=== PATIENT | female | born 1975 | race Caucasian/White ===

== ENCOUNTER 2021-07-12 08:48 | Inpatient (IN) | payer BC, OTHER ==
[2021-07-12] VITALS (30 sets, daily range): BP systolic 87–121; BP diastolic 57–83
[~2021-07-12] VITALS: Ht 160 cm; Wt 73.0 kg
[~2021-07-12 08:48] MED LIST: BACTRIM DS TAB1 EACH PO; CLONAZEPAM 0.50.5 M1 PO; KEFLEX500 M1 PO; ROSUVASTATIN CA10 MG PO; XANAX 0.5 MG0.5 M1 PO
--- NOTE | 2021-07-12 19:05 | NUR ---
PT IS AN ADM FROM [facility] FOR CT EVALUATION. THE ATRIUM IS REPLACED AND PUT ON NEG 20 PRESSURE. THE AIR LEAK IMPROVES AFTER SUCH INTERVENTION. THE PT. IS STABLE BUT ON A NRB 15L. HER IS AT THE BEDSIDE AND INFORMED OF THE POC FOR THIS PT. RN TO RN REPORT COMPLETE PRIOR TO ADM.
[2021-07-12 19:09] LABS: HEMATOCRIT 39.6 % (37.0-47.0); HEMOGLOBIN 13.2 gm/dL (12.0-15.0); MCH 29.4 pg (26.0-34.0); MCHC 33.3 g/dL (28.0-37.0); MCV 88.5 fL (80.0-100.0); RBC 4.48 mil/uL (4.20-5.00); RDW 14.9 % (10.5-14.5); WBC 18.5 thou/uL (4.0-11.0)
[2021-07-12 19:20] LABS: APTT 25.5 Seconds (24.5-32.8); INR 1.02; PROTIME 11.1 Seconds (10.5-12.1)
[2021-07-12 20:17] LABS: BE(vivo) 5.6 mmol/L (-2 to +3); HCO3 28.5 mmol/L (22.0-26.0); PCO2 35.5 mmHg (35.0-45.0); PO2 73.9 mmHg (80.0-100.0); pH 7.522 (7.360-7.450); sO2 96.2 % (92.0-98.0)
[2021-07-13] VITALS (15 sets, daily range): BP systolic 85–121; BP diastolic 54–72
[2021-07-13 02:18] LABS: ABSOLUTE NEUTROPHILS 13.9 thou/uL (1.4-8.2); BASOPHILS 0.2 % (0.0-2.0); EOSINOPHILS 0.1 % (0.0-3.0); HEMATOCRIT 36.1 % (37.0-47.0); HEMOGLOBIN 12.1 gm/dL (12.0-15.0); LYMPHOCYTES 4.7 % (24.0-44.0); MCH 29.3 pg (26.0-34.0); MCHC 33.5 g/dL (28.0-37.0); MCV 87.5 fL (80.0-100.0); MONOCYTES 1.5 % (1.0-8.0); PLATELET COUNT 167 thou/uL (150-400); POLYS 93.5 % (36.0-66.0); RBC 4.12 mil/uL (4.20-5.00); RDW 14.5 % (10.5-14.5); WBC 14.8 thou/uL (4.0-11.0)
[2021-07-13 02:24] LABS: ALBUMIN 2.9 g/dL (3.4-5.0); CALCIUM 8.8 mg/dL (8.5-10.1); CREATININE 0.7 mg/dL (0.6-1.0); MAGNESIUM 2.2 mg/dL (1.8-2.4); POTASSIUM 3.3 mmol/L (3.5-5.1); TOTAL BILIRUBIN 0.6 mg/dL (0.2-1.0); TOTAL PROTEIN 5.9 g/dL (6.4-8.2)
--- NOTE | 2021-07-13 10:32 | NUR ---
0700HRS - HEPARIN 13 UNITS/KG/HR AT SHIFT CHANGE 1030HRS - APTT @ 0920HRS 94.2 FROM PICC. REDRAW PERIPHERAL @ 1003HRS 99.7. HEPARIN GTT STOPPED, WILL RESTART AT 1130HRS AND TITRATE ORDERED.
--- NOTE | 2021-07-13 12:00 | HC ---
[facility] [place] [address] CONSULTATION Name: ISAK VO Room #: 239-P ADM IN M.R.#: [id number] Admission: 07/12/21 Attend Phys: Pablo Cherry MD Discharge: Date of : 73 Report #: [id number] THIS REPORT FOR: cc: Sybil Brown Ghaison F. DO Barry, Joseph W. MD ~ DATE OF SERVICE: 07/12/2021 INFECTIOUS DISEASE CONSULTATION ATTENDING PHYSICIAN: Dr. Chopra. REASON FOR EVALUATION: Coagulase-negative staph, line related septicemia. HISTORY OF PRESENT SUBJECTIVE: Chart reviewed. The patient examined. This is a 46-year-old who had extensive medical history of recent 4-6 weeks, diagnosed with COVID, was confirmed to have pneumonitis with respiratory failure that was quite severe. She has been hospitalized for the duration of the time of this point. Diagnosed with pulmonary emboli, also developed a pneumothorax on the left, so undergone a chest tube placement. She was transferred to this facility due to malfunctioning of the chest tube, requirement of Thoracic Surgery. Roughly a week ago, apparently was diagnosed with a central line related Staph epidermidis infection as isolated from the tip, has been on vancomycin. Clinically, she is not experiencing any fevers. She is maintained on still high-flow supplemental oxygen, nonrebreather with face mask at 15 liters per minute, FiO2 of 100%. Denies significant abdominal related complaints. She has had a recent bowel movement. ALLERGIES: LISTED TO CODEINE AND OXYCODONE. CURRENT MEDICATIONS: Include pantoprazole, methylprednisolone, clonazepam, vancomycin, midodrine, dexmedetomidine, p.r.n. analgesics. PAST MEDICAL HISTORY: Includes hyperlipidemia, anxiety, recent history of COVID-19 infection, complicated by severe pneumonitis, respiratory failure with pulmonary emboli and pneumothorax, previous hysterectomy, cholecystectomy. SOCIAL HISTORY: Nonsmoker. No illicit drug use. No ethanol. FAMILY HISTORY: Noncontributory. REVIEW OF SYSTEMS: Otherwise, unremarkable. PHYSICAL EXAMINATION: GENERAL: She is alert, cooperative. She does have some hearing deficits, appears somewhat chronically ill and undernourished. She is generally lucid. [facility] [address] [place] [address] CONSULTATION Name: ISAK VO Room #: 239-P [facility]#: [id number] Admission: 07/12/21 Attend Phys: Pablo Cherry MD Discharge: Date of : 73 Report #: [id number] VITAL SIGNS: Temperature afebrile, pulse 65, respirations 29, blood pressure 101/83, saturation 90% on a nonrebreather. HEENT: Normocephalic. Extraocular muscles intact. Face mask in place. NECK: Supple. LUNGS: Diffuse scattered coarse breath sounds. HEART: Regular, do not appreciate a murmur. ABDOMEN: Slightly distended, soft, nontender. EXTREMITIES: No cyanosis. GENITOURINARY AND RECTAL: Deferred. DIAGNOSTIC DATA: Chest x-ray from today showed patchy bilateral pulmonary infiltrates, scattered right sided PICC line which has been recently changed, left thoracostomy, tiny left pneumothorax. LABORATORY DATA: Labs pending. ASSESSMENT AND PLAN: 1. Staph epidermidis, line related infection. 2. COVID-19 infection, complicated by pneumonitis, chronic respiratory failure with pulmonary emboli and left-sided pneumothorax requiring chest tube. 3. Hyperlipidemia. We will continue current therapy with vancomycin; we would plan at least additional week at this point and see how she does clinically over the course of next several days. She remains tenuous. Continue to monitor expectantly at risk for additional complications. <ELECTRONICALLY SIGNED> By: Hamlet Gonsales MD 07/13/21 1200 1547 0029 Hamlet Gonsales MD /nt
--- NOTE | 2021-07-13 12:49 | NUR ---
RD consult received. pt a transfer from [facility] with hx treatment for COVID (no longer isolation protocol), ARDS, pneumothorax with chest tube and air leak. On optiflow. Records from show pt has been eating well, 100% of meals but likely some wt loss up to 25 lb over past 3 months. Highly anxious today, psych consulted. Will follow up at later date for interview with pt. No diet order yet. Low nutrition risk at this time.
--- NOTE | 2021-07-13 15:06 | NUR ---
Chart review. DX h/o COVID. Transferred from [facility]. Out of covid isolation. Has chest tube, is on optflow oxygen. Not had the covid vaccine. Prior to hospital, independent, CPAP at bedtime, manage own medication. drives. Lives with spouse chirag, in raised ranch home with 12-14 stairs, no hand rail. Able to complete adls [employer] independent. Kids are grown. Support from her spouse if needed. No hh or rehab in the past. Will cont following as needed for dc needs. There will be [place] paper work for her spouse so if she needs a little assist with get home, he will be there and there is another insurance form he needs completed. Chirag will bring in paper work for to complete.
--- NOTE | 2021-07-13 16:28 | NUR ---
1445HRS - PT UP IN RECLINER WITH PT, OT, & RN ASSIST
--- NOTE | 2021-07-13 17:23 | NUR ---
1723HRS - PT PLACED BACK INTO BED WITH RN ASSIST
--- NOTE | 2021-07-13 18:44 | NUR ---
0900HRS - PT REFUSE FLU SHOT
[2021-07-14] VITALS (36 sets, daily range): BP systolic 78–156; BP diastolic 49–125
--- NOTE | 2021-07-14 02:47 | NUR ---
Suction cannister connected to purewick remains empty despite suction being on and all connections secure. Pt denies feeling need to void or feeling wet. Has been sleeping soundly since 2199, so fluid intake low.
[2021-07-14 06:28] LABS: HEMATOCRIT 33.2 % (37.0-47.0); HEMOGLOBIN 11.1 gm/dL (12.0-15.0); MCH 29.7 pg (26.0-34.0); MCHC 33.5 g/dL (28.0-37.0); MCV 88.6 fL (80.0-100.0); RBC 3.75 mil/uL (4.20-5.00); RDW 14.7 % (10.5-14.5)
[2021-07-14 06:41] LABS: CALCIUM 8.6 mg/dL (8.5-10.1); CREATININE 0.7 mg/dL (0.6-1.0); MAGNESIUM 2.4 mg/dL (1.8-2.4)
--- NOTE | 2021-07-14 11:18 | NUR ---
0930HRS - PT SHOWING SIGNS OF ANXIETY, MULTIPLE QUESTIONING, HR 130S, O2 70S, RAPID BREATHIHNG. PT AT BEDSIDE AND ASSISTED PT TO RECLINER. PRECEDEX INCREASED.
--- NOTE | 2021-07-14 13:40 | NUR ---
1000HRS - PT EASILY FRUSTRATED AND ANXIOUS. DOEN'T MAKE MUCH EFFORT TO FEED SELF. REQUESTED STAFF TO FEED HER. CREATES SMALL JOBS FOR STAFF SUCH ARRANGE HER TABLE IN FRONT OF HER WHILE IN THE SEATED POSITION. EDUCATED PT THAT SHE NEEDS TO BE ABLE TO DO TASKS BY HERSELF TO IMPROVE MUSCLE STRENGTH AND A SENSE OF INDEPENDANCE.
--- NOTE | 2021-07-14 14:45 | NUR ---
Discussed during los and unit rounds. Dr Ardon consult. anxiety. Desaturation with activity or yelling out. Opti flow. Up to recliner chair today with therapy. Out of isolation. No weekend dc, will cont. following as needed for dc needs.
--- NOTE | 2021-07-14 16:35 | NUR ---
0400HRS - BLADDER SCAN >400. NOTIFIED DR. LEMUS 0430HRS - INSERT LEONG CATH USING STERILE TECHNIQUE. 10CC NS INTO BALLOON. PT REPORTED NO DISCOMFORT AT THIS TIME. 400ML EMPTY INTO LEONG CATH BAG
--- NOTE | 2021-07-14 16:39 | NUR ---
1030HR - PT'S FRIEND VISITED AND AT BEDSIDE.
--- NOTE | 2021-07-14 18:19 | NUR ---
1600HRS- PT PLACED BACK IN BED WITH X2 ASSIST AFTER A TOTAL OF APPROX 6 HOURS.
[2021-07-15] VITALS (22 sets, daily range): BP systolic 110–150; BP diastolic 59–88
--- NOTE | 2021-07-15 05:00 | NUR ---
PT REFUSED AM BATH THIS MORNING STATING SHE WANTS TO WAIT UNTIL LATER TODAY WHEN SHE GETS UP TO THE CHAIR.
[2021-07-15 05:09] LABS: HEMATOCRIT 33.4 % (37.0-47.0); HEMOGLOBIN 11.1 gm/dL (12.0-15.0); MCH 29.8 pg (26.0-34.0); MCHC 33.2 g/dL (28.0-37.0); MCV 89.7 fL (80.0-100.0); RBC 3.73 mil/uL (4.20-5.00); RDW 14.9 % (10.5-14.5); WBC 16.5 thou/uL (4.0-11.0)
--- NOTE | 2021-07-15 09:51 | NUR ---
0945RHS - PT OUT OF BED INTO RECLINER WITH X1 ASSIST RN. PT DESAT TO 75%, HR 120S, RESP 40S. PT REPORTING FEELING ANXIOUS. PT APPEARED SAD AND WHINED, WHINED, "DON'T LEAVE ME! DON'T LEAVE THE ROOM!"
--- NOTE | 2021-07-15 11:49 | NUR ---
1015HRS - PRECEDEX OFF, ORDERS TO TRANSFER, ER ADMISSION CALLED TO CONFIRM ORDERS FOR TRANSFER, MACHINE CAGE MAKER NURSE RECIEVED ROOM NUMBER 363 AND REPORTED TO THIS PRACTICE ASSISTANT. REPORTED GIVEN TO 363 RN.
--- NOTE | 2021-07-15 14:45 | NUR ---
PT ARRIVED TO ROOM 363 VIA CHAIR AT 1100. PT HAS LEFT CHEST TUBE. DR. RIVERA ORDERED CHEST TUBE TO BE HOOKED UP TO SUCTION AT -20CM. THERE IS AN AIRLEAK. PT IS ON OPTIFLOW 50L AT 60%. PT IS TACHYPNIC AND ANXIOUS AT THIS TIME. PT IS SINUS TACHYCARDIA ON HE MONITOR. PT CURRENTLY HAS HEPARIN GTT INFUSING. LEONG CATHEER IN PLACE FOR RETENTION. RIGHT UPPER ARM DL PICC LINE HAS GOOD BLOOD RETURN. COCCYX RED. WILL CONTINUE TO MONITOR.
[2021-07-16 00:03] VITALS: BP 162/88
--- NOTE | 2021-07-16 01:58 | NUR ---
PT ALERT AND ORIENTED X4. PT IS VERY ANXIOUS. STAYED WITH PT THROUGH HER HIGH ANXIETY. NOTIFIED COFFEE PLANTATION WORKER OF C/O ANXIETY. HALDOL 5MG IV ORDERED. PT ONLY WANTED TO TRY 2.5 MG IV. RR 40. PT C/O BEING HOT THEN COLD A FEW MINUTES LATER FREQUENTLY. SATS DECREASED TO 79 BRIEFLY THEN BACK UP TO 90S ON 40 LF AND 68 FIO2. RT NOTIFIED. CHEST TUBE HAS AN AIR LEAK NOTED . IS AWARE ACCORDING TO DAY SHIFT NS. NOTIFIED COFFEE PLANTATION WORKER ALSO. HR FLUCTUATING FROM 90S-105. BREATH SOUNDS ARE DIMINSHED WITH FEW RHONCHI NOTED. WILL CONTINUE TO MONITOR PT FREQUENTLY. ZGARD APPLIED TO REDDENED BOTTOM.
[2021-07-16 05:19] VITALS: BP 136/83
[2021-07-16 05:52] LABS: BE(vivo) 3.2 mmol/L (-2 to +3); HCO3 25.9 mmol/L (22.0-26.0); PCO2 33.3 mmHg (35.0-45.0); PO2 59.2 mmHg (80.0-100.0); pH 7.509 (7.360-7.450); sO2 93.1 % (92.0-98.0)
[2021-07-16 05:54] LABS: HEMOGLOBIN 11.1 gm/dL (12.0-15.0); RBC 3.74 mil/uL (4.20-5.00)
[2021-07-16 05:56] LABS: HEMATOCRIT 33.4 % (37.0-47.0); MCH 29.7 pg (26.0-34.0); MCHC 33.2 g/dL (28.0-37.0); MCV 89.4 fL (80.0-100.0); PLATELET COUNT 178 thou/uL (150-400); RDW 14.6 % (10.5-14.5); WBC 19.5 thou/uL (4.0-11.0)
[2021-07-16 07:16] LABS: ABSOLUTE NEUTROPHILS 17.4 thou/uL (1.4-8.2); NUCLEATED RBCS 4 /100WBC
[2021-07-16 07:18] LABS: ANISOCYTOSIS 1+; POLYCHROMASIA OCCASIONAL
[2021-07-16 07:57] VITALS: BP 138/87
--- NOTE | 2021-07-16 07:59 | NUR ---
PT ALERT AMD ORIENTED X4 THIS AM. SHE IS MUCH LESS ANXIOUS THIS MORNING AFTER SHE FELL ASLEEP FOR ABOUT 4 HRS. SHE APOLOGIZED REGARDING HER PANICK ATTACH. MUCH ENCOURAGEMENT PROVIDED FOR PT. HEPAIN GTT INFUSING. VANCOMYCIN TROUGH 27. NOTIFIED PHARMACIST. HE STATED TO STOP VANC. DOSE AND WE WILL HOLD FOR 24 HRS. PHARMACIST STATED HE WOULD NOTIFY DR GAN HIMSELF. THRESHER BROOMCORN ALSO NOTIFIED OF VANC LEVEL AND THAT I HELD MIDODRINE THIS AM UNTIL CLARIFIED PER WHETHER TO CONTINUE HERE ON FLOOR OR NOT. (PT NO LOMGER ON SEDATION). UO 100 THIS AM. BLADDER SCANNED PT 425 ON SCANNER AND 450 DRAINED FROM LEONG AFTER REPOSITIONING TUBING AND RELEASED FROM LEONG ANCHOR. SATS WNL THIS AM.
[2021-07-16 11:31] VITALS: BP 149/99
[2021-07-16 15:42] VITALS: BP 146/92
--- NOTE | 2021-07-16 18:48 | NUR ---
PT ALERT AND ORIENTED X 4. PT ON 42L OPTIFLOW WITH 63% FI02. PT DESATS WITH MOVEMENT AND BECOMES ANXIOUS WHEN SHE HEARS ALARM GO OFF. PT DENIES PAIN. PT HAD BM TODAY. CHEST TUBE DRAINED 10ML DURING THIS SHIFT. PT DENIES NEEDS AT THIS TIME. FALL PRECAUTIONS IN PLACE. WILL CONTINUE TO MONITOR.
[2021-07-16 19:07] VITALS: BP 149/93
[2021-07-17 03:16] VITALS: BP 156/80
--- NOTE | 2021-07-17 04:23 | NUR ---
PT 24 HOUR APTT WAS 45.4. BOLUS 2220 UNITS AND INCREASED DRIP BY 2U/KG/HR. APTT REDRAW SCHEDULED FOR 05.
--- NOTE | 2021-07-17 05:30 | NUR ---
PT ALERT AND ORIENTED X 4. PT ON 40L OPTIFLOW AND 67% FIO2. PT WAS ABLE TO SLEEP FOR 4 HRS. PT HAD A BM DURING SHIFT AND REFUSED STOOL SOFTENER. PT C/O OF PAIN ON GENERALIZED RIGHT SIDE. NURSE ADDRESSED AND ADMINISTERED PAIN MEDICATIONS AT 0500. CHEST TUBE DRAINED 2ML DURING THIS SHIFT. FALL PRECAUTIONS IN PLACE. WILL CONTINUE TO MONITOR.
[2021-07-17 07:11] LABS: ALBUMIN 2.3 g/dL (3.4-5.0); CREATININE 0.5 mg/dL (0.6-1.0); PHOSPHORUS 2.7 mg/dL (2.5-4.9); POTASSIUM 3.1 mmol/L (3.5-5.1)
[2021-07-17 07:14] LABS: CALCIUM 6.6 mg/dL (8.5-10.1)
[2021-07-17 07:58] VITALS: BP 137/888
[2021-07-17 11:28] VITALS: BP 148/95
--- NOTE | 2021-07-17 14:34 | NUR ---
BRIAN reviewed chart and spoke with nursing and attending physician. Pt was transferred to from ICU. Pt has chest tube in place and is requiring optiflow. Pt is on IV abx and IV steroids. PT/OT evals have been ordered. BRIAN met with pt and her dtr at bedside. Introduced role of SW and discussed discharge planning. Pt states she would like to go to [facility] for rehab services. BRIAN explained inpt acute rehab admission criteria and the need to check pt's insurance coverage. BRIAN also discussed LTAC option if pt's O2 needs remain high and chest tube remains in place. Pt states she does not want to consider LTAC at this time and is focused on going to [facility] if she is able to qualify. BRIAN discussed with [facility] vision rehabilitation therapist who will put in a [facility] consult. BRIAN updated pt's nurse and attending physician. BRIAN is following to assist as needed with discharge planning.
[2021-07-17 16:28] VITALS: BP 132/88
[2021-07-17 20:54] VITALS: BP 135/95
[2021-07-18 03:16] VITALS: BP 125/80
[2021-07-18 06:17] LABS: HEMATOCRIT 33.1 % (37.0-47.0); HEMOGLOBIN 11.4 gm/dL (12.0-15.0); MCH 30.6 pg (26.0-34.0); MCHC 34.3 g/dL (28.0-37.0); MCV 89.3 fL (80.0-100.0); RBC 3.71 mil/uL (4.20-5.00); RDW 14.8 % (10.5-14.5); WBC 18.9 thou/uL (4.0-11.0)
--- NOTE | 2021-07-18 06:34 | NUR ---
PT ALERT AND ORIENTED X 4. PT ON 40L OPTIFLOW 60% FIO2. PT HAD BM DURING SHIFT AND REFUSED STOOL SOFTENER. PT C/O OF PAIN ON BACK AND DISCOMFORT IN POSTIONING. ATTEMPTED TO REPOSITION BUT IT WAS INADEQUATE. NURSE ADDRESSED PAIN AND ADMINISTERED PAIN MEDICATION. CHEST TUBE DRAINED 10ML DURING THIS SHIFT. FALL PRECAUTIONS IN PLACE. WILL CONTINUE TO MONITOR.
[2021-07-18 07:38] VITALS: BP 147/89
[2021-07-18 11:23] VITALS: BP 152/93
--- NOTE | 2021-07-18 14:26 | NUR ---
BRIAN reviewed chart and spoke with nursing and attending physician. Pt remains on optiflow and has chest tube in place. Pt is on IV abx and IV steroids. BRIAN discussed case with [facility] rehab manager. At this time, pt does not meet admission criteria for [facility]. Recommendation made for LTAC placement for complex medical needs. [facility] rehab LEAD CLINICAL RESEARCH COORDINATOR to discuss with pt today. BRIAN is following to assist as needed with discharge planning.
[2021-07-18 16:21] VITALS: BP 170/105
[2021-07-18 19:22] VITALS: BP 151/83
--- NOTE | 2021-07-18 19:34 | NUR ---
ASSUMED PATIENT CARE AT 0700. A/O X4. ANXIOUS. DESAT WITH ACTIVITY. NOT TOWARDS POC GOALS.
--- NOTE | 2021-07-18 21:06 | NUR ---
YOEL PARIS CAME BACK AT 11. SPOKE TO [facility] AND THEY WILL ADJUST TO HIGHER DOSE. ASSUMED CARE FOR PT AT 1845. PT NEEDS TO ATTEMPT MORE CARES FOR HERSELF. PT REFUSING TO USE BEDPAN AT 2100 DUE TO "HER ANXIETY" WHILE HAVING A BM IN THE BED.
[2021-07-19 03:56] VITALS: BP 142/85
[2021-07-19 07:51] VITALS: BP 141/95
[2021-07-19 16:21] VITALS: BP 156/106
--- NOTE | 2021-07-19 18:43 | NUR ---
HEPARIN DC'D. PT HAS ORDERS FROM DR GAMBOA TO OOB AND UP TO CHAIR. PT DOES NOT TOLERATE OOB AND UP TO CHAIR. PT HAS INCREASED ANXIETY AND PANIC ATTACK WHEN SITTING ON SIDE OF BED TO DANGLE. PT IS ABLE TO SIT ON SIDE OF BED AND DANGLE APPROX. 2-3 MINUTES. PT DOES DESAT WITH ACTIVITY, BUT IS ABLE TO RECOVER WITHIN MINUTES AFTER POSITION CHANGE. PT HAD MULTIPLE SOFT BROWN BM'S THIS SHIFT. TOLERATES BED REYES. PT STATES SHE HAS GOAL OF LEARNING THERAPEUTIC BREATHING TECHNIQUES TO HELP WITH ANXIETY, IS COMPLIANT WITH ANXIETY MEDICATION. THIS RN PROVIDED EXAMPLE OF BREATHING TECHNIQUES.
[2021-07-19 19:07] VITALS: BP 151/93
--- NOTE | 2021-07-19 22:52 | NUR ---
PT RESTING IN BED, VISITED WITH . OPTI SARAH AND CONTINUOUS PULSE OX INTACT. PT TURNING SELF IN BED. LUNGS CRACKLES, PALE SKIN TONE. CHEST TUBE INTACT, AIR LEAK REMAINS. LEONG TO DD. BLE EDEMA. PT CALLS FOR ASSIST. PT INTERMITTENTLY ASKS IF O2 SAT IS GOOD. PT READING BOOK, TALKING ABOUT DECORATING FOR HALLOWEEN.
[2021-07-20 03:55] VITALS: BP 147/88
--- NOTE | 2021-07-20 05:54 | NUR ---
PT REFUSING MIDODRINE, SINCE BP REMAINS WNL.
[2021-07-20 07:33] VITALS: BP 135/90
--- NOTE | 2021-07-20 11:06 | NUR ---
SW reviewed chart and spoke with nursing and attending physician. Pt has chest tube in place and remains on optiflow. Pt is on IV abx and IV steroids. No surgical interventions planned at this time. BRIAN met with pt at bedside. [facility] has declined pt for admission until she is more medically stable: chest tube removed and not requiring as much O2. SW discussed with pt and provided list of area LTAC facilities. SW explained the level of care provided at the LTAC facilities. Pt states she is not going to an LTAC and will only consider [facility]. SW explained that [facility] cannot accept her and that [facility] would be an option after an LTAC stay or when she is medically stable. SW left LTAC list in her room for review. BRIAN is following to assist as needed with discharge planning.
[2021-07-20 11:19] VITALS: BP 135/87
--- NOTE | 2021-07-20 11:41 | NUR ---
Nutrition follow up: Pt noted with 8 lb wt gain this week. Also noted on steroids, which can cause weight gain. Intakes at meals avg >60% with ensure daily. Cotninues with chest tube in place for pneumothorax, no surgical interventions planned. Goal is d/c to [facility], however, pt is no medically stable and will likely need LTAC before rehab. Continue current interventions. Low nutrition risk.
[2021-07-20 15:34] VITALS: BP 139/92
[2021-07-20 19:50] VITALS: BP 154/102
[2021-07-20 23:20] VITALS: BP 130/100
[2021-07-21 04:10] VITALS: BP 125/98
[2021-07-21 05:56] LABS: HEMATOCRIT 37.3 % (37.0-47.0); HEMOGLOBIN 12.7 gm/dL (12.0-15.0); MCH 30.6 pg (26.0-34.0); MCV 90.1 fL (80.0-100.0); PLATELET COUNT 169 thou/uL (150-400); RBC 4.14 mil/uL (4.20-5.00); RDW 15.2 % (10.5-14.5); WBC 22.5 thou/uL (4.0-11.0)
[2021-07-21 06:14] LABS: ALBUMIN 3.3 g/dL (3.4-5.0); CALCIUM 9.7 mg/dL (8.5-10.1); CREATININE 0.6 mg/dL (0.6-1.0); MAGNESIUM 2.3 mg/dL (1.8-2.4); PHOSPHORUS 4.2 mg/dL (2.5-4.9); POTASSIUM 4.6 mmol/L (3.5-5.1); TOTAL BILIRUBIN 0.5 mg/dL (0.2-1.0); TOTAL PROTEIN 6.3 g/dL (6.4-8.2)
[2021-07-21 06:54] LABS: NUCLEATED RBCS 1 /100WBC
[2021-07-21 06:55] LABS: ANISOCYTOSIS 1+; LARGE PLATELETS FEW; PLATELET ESTIMATE NORMAL; POIKILOCYTOSIS 1+; POLYCHROMASIA 1+
--- NOTE | 2021-07-21 07:28 | NUR ---
PT MAKING POOR PROGRESS TOWARDS GOAL. CHEST TUBE, LEFT SIDE WITH BUBBLING IN WATER CHAMBER. THIS PER DAY RN WAS NOT A NEW FINDING. PT ON OPTIFLO AT 40L/69-70% FIO2 OVERNIGHT. AT REST PT O2 SAT 90-92%. WHILE ASLEEP SAT NOTED TO BE 97-99%. PT O2 SAT FALLS TO 80% WITH MINIMAL EXERTION SUCH ROLLING OVER IN BED. PT NOTED TO HAVE ACCESSORY MUSCLE USE AND MODERATE ABDOMINAL MOVEMENT WITH BREATHING. THIS IS ALSO PRESENT WHEN ASLEEP. UPON INITIAL ASSESSMENT PT REFUSED TO WEAR BIPAP. PT INFORMED ABOUT THE WAY IN WHICH SHE IS BREATHING AND HOW BIPAP MAY HELP REDUCE SOME OF THE WOB ESPECIALLY WHEN ASLEEP. PT RECEPTIVE TO INFORMATION BUT STILL DID NOT AGREE TO WEAR BIPAP.
[2021-07-21 07:35] VITALS: BP 154/104
[2021-07-21 11:13] VITALS: BP 144/104
--- NOTE | 2021-07-21 14:43 | NUR ---
BRIAN reviewed chart and spoke with nursing and attending physician. Pt has chest tube in place and is requiring optiflow. Pt is on IV steroids. Attending physician spoke with pt about going to an LTAC for continued complex medical care. BRIAN sent face sheet to the three [facility] LTACs to determine which LTACs are in-network. BRIAN spoke with Vic at [facility] said they are in-network, but do not anticipating having a bed for several weeks. [facility] is limited as to how many pts they can take with pt's insurance. BRIAN spoke with Lainey in intake at [facility] who states they are in-network. BRIAN spoke with Estefani at [facility], who states that pt's insurance plan does not have LTAC benefits. BRIAN notified TAMARA RN and Director of Case Management. TAMARA RN checked pt's insurance. Confirms pt does not have LTAC benefits. Pt has inpt acute rehab, SNF and HH coverage. BRIAN discussed with [facility] cardiac rehab nurse. No weekend discharge anticipated. BRIAN is following to assist as needed with discharge planning.
[2021-07-21 15:47] VITALS: BP 135/90
[2021-07-21 19:45] VITALS: BP 125/90
--- NOTE | 2021-07-22 04:43 | NUR ---
PT MAKING SLOW PROGRESS TOWARDS GOALS. ON OPTIFLO AT 35L/58% OVERNIGHT. CHEST TUBE WITH BUBBLING IN WATER CHAMBER, SUCTION SET TO -30. WOB NOTABLY LESS THAN LAST NIGHT WITH ABSENCE OF ACCESSORY MUSCLE USE AND RESP RATES IN LOW 20S.
[2021-07-22 05:55] VITALS: BP 135/93
[2021-07-22 07:53] VITALS: BP 134/84
[2021-07-22 11:13] VITALS: BP 129/82
--- NOTE | 2021-07-22 15:00 | NUR ---
PT DANGLED ON SIDE OF BED...REQUESTED TO STAND AND PIVOT TO CHAIR BUT SOON SHE DANGLED SHE DESATED TO 75%...SHE WAS UNABLE TO TOLERATE DANGLING MORE THAN 5 MIN AND OPTIFLOW WAS INCREASED TO MAINTAIN HER SATS...
[2021-07-22 15:07] VITALS: BP 143/100
[2021-07-22 19:31] VITALS: BP 147/96
[2021-07-23 04:58] VITALS: BP 153/99
[2021-07-23 05:55] VITALS: BP 153/104
--- NOTE | 2021-07-23 06:07 | NUR ---
SPOKE WITH JEFFERSON, PT AWOKE WITH STERNAL "STABBING" PAIN JUST ABOVE THE EPIGASTRIC LEVEL W/O RADIATION NOR ANY OTHER ASSOCIATED SX. PAIN LEVEL DID NOT CHANGE WITH SWALLOW OF WATER, DEEP BREATH OR PALPATION. LUNGS CLEAR, WITH CRACKLES IN LLL. NO OBSERVABLE CHANGE IN CHEST TUBE FUNCTION. ORDERS FOR EKG, TROP AND TYLENOL FOR DISCOMFORT. PT STATING "I THINK IT MIGHT BE A MUSCLE STRAIN." AWAIT RESULTS.
[2021-07-23 07:49] VITALS: BP 152/95
[2021-07-23 08:51] LABS: HEMATOCRIT 36.9 % (37.0-47.0); HEMOGLOBIN 12.2 gm/dL (12.0-15.0); PLATELET COUNT 141 thou/uL (150-400); RBC 4.06 mil/uL (4.20-5.00); RDW 15.9 % (10.5-14.5); WBC 16.5 thou/uL (4.0-11.0)
[2021-07-23 09:03] LABS: ALBUMIN 3.4 g/dL (3.4-5.0); CALCIUM 9.8 mg/dL (8.5-10.1); CREATININE 0.7 mg/dL (0.6-1.0); MAGNESIUM 2.4 mg/dL (1.8-2.4); POTASSIUM 4.4 mmol/L (3.5-5.1); TOTAL BILIRUBIN 0.5 mg/dL (0.2-1.0); TOTAL PROTEIN 6.3 g/dL (6.4-8.2)
[2021-07-23 11:42] VITALS: BP 146/87
--- NOTE | 2021-07-23 13:43 | EKG ---
[address] [place] [address] ELECTROCARDIOGRAM REPORT Name: ISAK VO Room #: 363-P ADM IN M.R.#: [id number] Admission: 07/12/21 Attend Phys: Pablo Cherry MD Discharge: Date of : 73 Report #: [id number] [facility] Test Date: 2021-07-23 Test Time: 06:11:27 Pat Name: ISAK VO Department: Room: 363 P Gender: F Home Care Giver: STAR CUNHA RN : 1975 Requested By: Haezl Mazariegos Order Number: [id number] MD: Raffi Azevedo Measurements Intervals [place] Rate: 83 P: 38 ME: 109 QRS: 34 QRSD: 92 T: 178 QT: 341 QTc: 401 Interpretive Statements Sinus rhythm Nonspecific T abnormalities, diffuse leads No previous ECG available for comparison Electronically Signed On 07-23-2021 13:43:30 CDT by Raffi Azevedo [email or web address] <ELECTRONICALLY SIGNED> By: Raffi Azevedo MD, [facility] 07/23/21 1343 0611 0611 Raffi Azevedo MD, FAC /EPI
[2021-07-23 14:38] LABS: ABSOLUTE NEUTROPHILS 15.5 thou/uL (1.4-8.2); NUCLEATED RBCS 3 /100WBC; POLYCHROMASIA OCCASIONAL
[2021-07-23 14:39] LABS: MACROCYTES FEW
[2021-07-23 16:39] VITALS: BP 131/92
[2021-07-23 19:49] VITALS: BP 138/90
--- NOTE | 2021-07-23 19:51 | NUR ---
RN ASSUMED PT'S CARE AT 0700-1900PM, PT IS A&OX4, PT IS ON OPTIFLOW O2 40L, 70%, PT'S O2SAT STAYS AT 94-98%, PT HAS SOB WITH ACTIVITIES, PT'S L SIDE CHEST TUBE IS WORKING, PT 'S VS ARE STABLE, RN HAS CALLED DR TO REPORT PT'S CHEST PAIN, BUT PT DOES NOT HAS S/S OF TX, EKG ERSULTS SHOW ST, SANTANA EPPERSON REPORT NEXT SHIFT TO KEEP EYE ON PT.
[2021-07-24 05:06] VITALS: BP 151/101
--- NOTE | 2021-07-24 07:00 | NUR ---
Patient making slow progress towards outcome goals. Vital signs and rhythm stable. Left chest tube intact -30 cm suction. Drained 40 cc serosanguinous this shift. Tylenol given for comfort with complete relief. Oxygenation optimal with 45L/41%. High fall risks, fall precautions in place.
[2021-07-24 07:19] VITALS: BP 125/68
--- NOTE | 2021-07-24 07:19 | EKG ---
[address] [address] ELECTROCARDIOGRAM REPORT Name: ISAK VO Room #: 363-P ADM IN M.R.#: [id number] Admission: 07/12/21 Attend Phys: Pablo Cherry MD Discharge: Date of : 73 Report #: [id number] [facility] Test Date: 2021-07-23 Test Time: 13:03:13 Pat Name: ISAK VO Department: Room: 363 P Gender: F Joint Yarner: SANTANA : 1975 Requested By: Dasha Sampson Order Number: [id number] MD: Lj Kang Measurements Intervals [place] Rate: 120 P: 61 [place]: 110 QRS: 45 QRSD: 85 T: 193 QT: 269 QTc: 380 Interpretive Statements Sinus tachycardia Borderline repolarization abnormality Compared to ECG 07/23/2021 06:11:27 Sinus rhythm no longer present T-wave abnormality no longer present Electronically Signed On 07-24-2021 7:19:27 CDT by Lj Kang [email or web address] <ELECTRONICALLY SIGNED> By: Lj Kang MD, [facility] 07/24/21718 1303 1303 Lj Kang MD, FACC /EPI
--- NOTE | 2021-07-24 10:17 | HC ---
[facility] [place] [address] CONSULTATION Name: ISAK VO Room #: 363-P ADM IN M.R.#: [id number] Admission: 07/12/21 Attend Phys: Pablo Cherry MD Discharge: Date of : 73 Report #: [id number] THIS REPORT FOR: cc: Sybil Brown Ghaison F. DO Forman, John M. MD ~ DATE OF SERVICE: 07/13/2021 We were asked to see the patient by the hospitalists. HISTORY OF PRESENT ILLNESS: The patient is 46 years old, transferred here from [facility] with post-COVID pneumonitis. The patient was diagnosed with COVID pneumonitis on 05/25/2021. The patient was originally admitted to [facility] on 06/01/2021 with worsening symptoms. The patient was started on broad-spectrum antibiotics, steroids, and antivirals. Infectious Disease and Pulmonary were consulted. The patient also was treated for urinary tract infection. The patient was started on Xarelto for DVT prophylaxis. Lower extremity duplex was negative. Platelets dropped rapidly by 06/18/2021 with a critical low of 47,000. Hematology was consulted and Xarelto was stopped with an improvement in platelet count. We note that the patient had a large left pneumothorax with evidence of tension on 06/30/2021 and chest tube was placed. Since that time, the patient has had a persistent air leak, the leak was thought to be low, but then over the last day or so, leak increased in size and Pulmonary called me to discuss transfer. According to the Pulmonary description, the lung was still expanded, and the patient was on high-flow oxygen. I advised pulmonary that it was unlikely that I would take the patient to the operating room acutely with both of those pertaining. In any event, the patient was transferred to our facility yesterday, the patient was seen to have a large continuous air leak when she was admitted, but the Pleur-evac box was changed to a new atrium and the leak all but resolved with that, indicating a technical rather than a patient-related issue. Nonetheless, the patient continues to be on high-flow oxygen and does have a small air leak with forced expiration and there is a small residual pneumothorax. Chest tube is in relatively good position, but it lies in the fissure, but the tip is apical and lung is all but reexpanded. ALLERGIES: CODEINE, ACETAMINOPHEN, and OXYCODONE. PAST MEDICAL AND SURGICAL HISTORY: Significant for anxiety, hysterectomy, cholecystectomy, hyperlipidemia and baseline sleep apnea. [address] [address] CONSULTATION Name: ISAK VO Room #: 363-P [facility] IN .R.#: [id number] Admission: 07/12/21 Attend Phys: Pablo Cherry MD Discharge: Date of : 73 Report #: [id number] SOCIAL HISTORY: The patient lives with her . The patient states she was a smoker up until the time of admission. The patient states she also vapes, but it is not clear to me what that involves. MEDICATIONS IN THE HOSPITAL: Include potassium, acetaminophen, albuterol, Klonopin, heparin IV, methylprednisolone, midodrine, Zofran, Protonix and vancomycin. REVIEW OF SYSTEMS: GENERAL: Denies fever or chills. EYES: Denies vision change. HEENT: Denies headache, hearing problems or sinus problems. RESPIRATORY: Short of breath leading to admission and still has persistent shortness of breath on high-flow oxygen. CARDIAC: Denies angina, palpitations. ABDOMINAL: Denies nausea, vomiting. GENITOURINARY: Denies urgency, frequency. MUSCULOSKELETAL: Denies bone or joint pain. SKIN: Denies rash or infection. NEUROLOGIC: Denies motor or sensory dysfunction. ENDOCRINE: Denies tremor or goiter. HEMATOLOGIC: Denies bruisability or bleeding. PHYSICAL EXAMINATION: GENERAL: The patient is lying in bed on high-flow oxygen. VITAL SIGNS: Temperature 36.2, heart rate 65, respiratory rate 20, blood pressure 106/61, O2 sat 95-100 on high-flow oxygen, Optiflow. HEENT: No scleral icterus. No arcus. NECK: No mass, no bruit. CHEST: Decreased breath sounds bilaterally. No rhonchi. HEART: Rhythm regular, no murmur. ABDOMEN: Soft, no mass. EXTREMITIES: No clubbing, cyanosis or edema. SKIN: No rash or infection. NEUROLOGIC: No obvious motor or sensory dysfunction. MUSCULOSKELETAL: No bone or joint asymmetry or deformity. PSYCHIATRIC: Shows limited insight into problem, which is understandable given the situation, but answers questions appropriately. ASSESSMENT AND PLAN: As discussed with the pulmonary physicians prior to admission, the patient is on high-flow oxygen and has a relatively well controlled air leak. At this point, there is no pressing indication for surgery. If the lung continues to heal and the leak persists, then video-assisted thoracoscopy might be appropriate; however, the patient is [facility] [address] [place] [address] CONSULTATION Name: ISAK VO Room #: 363-P ADM IN M.Tyree.#: [id number] Admission: 07/12/21 Attend Phys: Pablo Cherry MD Discharge: Date of : 73 Report #: [id number] currently on high-flow oxygen with diffuse ground-glass appearance of both lungs and the air leak is well controlled. I will be happy to follow the patient with you. Thank you for the consult. <ELECTRONICALLY SIGNED> By: Christopher Carpio MD 07/24/21 [id number] [id number] Christopher Carpio MD /nt
[2021-07-24 11:14] VITALS: BP 134/91
--- NOTE | 2021-07-24 11:53 | 2DMMODE ---
[facility] [place] [address] 2 D/M-MODE ECHOCARDIOGRAM Name: ISAK VO Room #: 363-P ADM IN M.R.#: [id number] Admission: 07/12/21 Attend Phys: Pablo Cherry MD Discharge: Date of : 73 Report #: [id number] THIS REPORT FOR: cc: Sybil Brown Ghaison F. DO Santiago, Patrick MD [facility] ~ APPROVED REPORT Study performed: 07/24/2021 10:50:42 EXAM: Comprehensive 2D, Doppler, and color-flow Echocardiogram Patient Location: Bedside Room #: 363 Status: routine BSA: 1.75 HR: 85 bpm BP: 125/68 mmHg Rhythm: NSR Other Information Study Quality: Technically Difficult Technically limited study due to Very limited study due to limited imaging windows, inability to position patient, post operative dressings, the patient has a chest tube. Indications Dyspnea Chest Pain S^P Covid Aortic Valve AoV Peak Eduard.: 0.98 m/s AO Peak Gr.: 3.86 mmHg Left Ventricle Left ventricle is grossly normal size. Regional wall motion is grossly normal. There is normal left ventricular wall thickness. The overall left ventricular systolic function appears normal. LVEF is 55-60%. This study is not technically sufficient to allow evaluation of the LV diastolic function. Right Ventricle Right ventricle is grossly normal in size. Right ventricular systolic function is grossly normal. [facility] [address] [place] [address] 2 D/M-MODE ECHOCARDIOGRAM Name: ISAK VO Room #: 363-P ADM IN M.R.#: [id number] Admission: 07/12/21 Attend Phys: Pablo Cherry MD Discharge: Date of : 73 Report #: [id number] Atria The left atrium size is normal. The right atrium size is normal. Aortic Valve The aortic valve is not well visualized. No aortic regurgitation is present. There is no aortic valvular stenosis. Mitral Valve Mitral valve is not well visualized. There is no mitral valve regurgitation noted. No evidence of mitral valve stenosis. Tricuspid Valve Tricuspid valve is not well visualized. There is no tricuspid valve regurgitation noted. Pulmonic Valve Pulmonic valve is not well visualized. Great Vessels The aortic root is normal in size. IVC is normal in size and collapses >50% with inspiration. Pericardium There is no pericardial effusion. <Conclusion> Technically difficult study Normal left ventricle size/wall thickness Ejection fraction 60% Normal right ventricle size/function Normal atrial size Color-flow Doppler study was performed of the aortic/mitral/tricuspid/pulmonary valve Normal aortic/mitral valve structure and function No tricuspid valve insufficiency No pericardial effusion Normal aortic root size. <ELECTRONICALLY SIGNED> By: Lj Kang MD, [facility] 07/24/21 1152 1152 1152 Lj Kang MD, FACC /INF
--- NOTE | 2021-07-24 12:48 | NUR ---
Case discussed with the care team. Pt still with chest tube in place and on optiflow. Dc timeframe is uncertain. [facility] is following along for possible rehab stay when medically ready. Ins auth would be needed.
[2021-07-24 15:19] VITALS: BP 154/98
[2021-07-24 19:42] VITALS: BP 153/101
--- NOTE | 2021-07-24 20:02 | NUR ---
RN ASSUMED PT'S CARE AT 0700-1900PM, PT IS A&OX4, PT IS ON OPTIFLOW O2 40L. 60%, PT'S O2SAT STAY AT 93-98%, PT HAS SOB WITH ACTIVITIES, PT 'S VS ARE STABLE, PT IS WORKING WITH PO/OT, WE FIND PT'S COCCYX PRESSURE WOUND , PROTECT CREAM APPLY TO COCCXY , WE ENCURAGE PT TO CHAGE POSITION Q2HR, BECAUSE PT REFUSED TURN SOMTIMES, RN HAS REPORTED TO NEXT SHIFT TO KEEP EYE ON PT.
--- NOTE | 2021-07-24 22:12 | NUR ---
PT RESTING IN BED WATCHING TV. PALE SKIN TONE, OPTI SARAH INTACT, LEONG TO DD. CHEST TUBE INTACT. LUNGS WHEEZES. PT ASKED TO BE REPOSITIONED AND WITHIN 30 MINUTES ASKED TO BE RETURNED TO HER BACK. PT DISCUSSED HER BREAK DOWN ON HER BOTTOM. PT DECLINED HS SNACK. PT STATED HER WAS NOT ABLE TO VISIT TODAY.
[2021-07-25 04:09] VITALS: BP 123/85
[2021-07-25 07:54] VITALS: BP 141/95
[2021-07-25 11:35] VITALS: BP 137/91
--- NOTE | 2021-07-25 11:49 | NUR ---
WOUND CARE CONSULT; THE PATIENT IS IN THE HOSPITAL TODAY WITH VARIOUS PULMONARY ISSUES, COVID 19. THERE IS A CHEST TUBE IN PLACE. THE PATIENT HAS A WOUND TO THE COCCYX/GLUTEAL CLEFT WHICH IS FRICTION VS PRESURE ETIOLOGY. THE WOUND MEASURES APPROX. 4 X 1.5 X 0.1 TODAY WITH RED WOUND BED WITH NO S/S OF INFECTION. THE PATIENTS S/O IS PRESENT. I DISCUSSED/ENOURAGED COOPERATION WITH TURNING AND PRESSURE REDISTRIBUTION TECHNIQUES. RN PRESENT RECCOMMENDATIONS; -LOW AIR LOSS PUMP ON AT ALL TIMES. -Q2H TURNING AT A MINIMUM. -[id number] TO COCCYX WOUND BID.
[2021-07-25 15:23] VITALS: BP 146/100
--- NOTE | 2021-07-25 18:15 | NUR ---
RN ASSUMED PT'S CARE AT 0700AM, PT IS A&OX4, PT IS CONTINUING OPTIFLOW O240L/MIN, 50%, PT'S O2SAT STAY AT 93-98%, PT'S VS ARE STABLE, BUT PT STILL HAS SOB WITH ACTIVITIES, PT IS VERY WEAK, PT HAS PT AND OT WORKING WITH HER, WE ENAOURAGE PT TO CHANGE POSOITION Q2HR WITH ASSIST , BECAUSE PT DOES NOT LIKE TO CHANGE POSITION. RN WILL REPORT TO NEXT SHIFT.
[2021-07-25 19:04] VITALS: BP 141/102
[2021-07-26 03:55] VITALS: BP 151/103
[2021-07-26 04:14] VITALS: BP 151/103
[2021-07-26 07:35] VITALS: BP 134/98
--- NOTE | 2021-07-26 08:15 | NUR ---
MAKING SLOW PROGRESS TOWARDS GOALS. ON OPTIFLO OVERNIGHT AT 45L AND 55% UPO INTIAL ASSESSMENT. LUNGS CTA EXCEPT LLL WHICH HAS SCATTERED CRACKLES. OVERNIGHT O2 TITRATED DOWN TO 40 AND 50-52%. NOTED O2 SATS DROP TO LOW-MID 80'S WITH TURNING IN BED. DOWN TO 85-88% WITH CONVERSATION. SATS WILL STAY 92-94% WHILE ASLEEP.
[2021-07-26 11:32] VITALS: BP 138/100
[2021-07-26 16:45] VITALS: BP 149/99
[2021-07-26 17:48] LABS: HEMATOCRIT 39.8 % (37.0-47.0); HEMOGLOBIN 13.2 gm/dL (12.0-15.0); MCH 30.2 pg (26.0-34.0); MCHC 33.2 g/dL (28.0-37.0); MCV 90.9 fL (80.0-100.0); RBC 4.38 mil/uL (4.20-5.00); RDW 16.6 % (10.5-14.5); WBC 21.5 thou/uL (4.0-11.0)
[2021-07-26 17:50] LABS: URINE BILIRUBIN NEGATIVE (Negative); URINE BLOOD 1+ (Negative); URINE CLARITY CLEAR; URINE COLOR YELLOW; URINE GLUCOSE-RANDOM* TRACE (Negative); URINE KETONES NEGATIVE (Negative); URINE LEUKOCYTES NEGATIVE (Negative); URINE NITRITE NEGATIVE (Negative); URINE PROTEIN (DIPSTICK) 2+ (Negative); URINE SPECIFIC GRAVITY 1.025 (1.005-1.035); URINE UROBILINOGEN 0.2 E.U./dl (0.2-1.0)
[2021-07-26 17:57] LABS: CALCIUM 8.8 mg/dL (8.5-10.1); CREATININE 0.6 mg/dL (0.6-1.0); POTASSIUM 4.4 mmol/L (3.5-5.1)
[2021-07-26 18:00] LABS: MUCUS 0-3 Light strn/LPF (None Seen); SQUAMOUS 0-3 Few /LPF (0-3); URINE RBC 1-2 Rare /HPF (NONE SEEN); URINE WBC 1-5 Rare /HPF (NONE SEEN)
[2021-07-26 18:01] LABS: BACTERIA 1-9 Few /HPF (None Seen); CRYSTALS None Seen /LPF (None Seen); HYALINE CASTS 0-3 Few /LPF (None Seen)
[2021-07-26 19:15] VITALS: BP 137/89
--- NOTE | 2021-07-26 19:35 | NUR ---
RN ASSUMED PT'S CARE AT 0700-1900PM, PT IS A&OX4, PT IS ON OPTIFLOW O2 40L/MIN, 50%, KEEP O2SAT AT 92-96%, BUT PT HAS SOB WITH ACTIVITIES, RN HAS CALLED HOSPITAL DR TO REPORT PT'S HR 120-130 AT MOST OF DAY, NEW ORDER RECEIVD, PT IS CONTINUING MEAGEMENT PAIN AND ANXIETY, PT IS VERY WEAK, WE STILL NEED TO ENCURAGE PT TO CHANGE POSITION Q2HR, BECAUSE PT DOES NOT LIKE TO TURN, PT'S L SIDE CHEST TUBE IN PLACE.
[2021-07-27 05:10] VITALS: BP 153/90
[2021-07-27 06:13] LABS: HEMATOCRIT 36.5 % (37.0-47.0); HEMOGLOBIN 12.5 gm/dL (12.0-15.0); MCHC 34.2 g/dL (28.0-37.0); MCV 90.5 fL (80.0-100.0); PLATELET COUNT 124 thou/uL (150-400); RBC 4.04 mil/uL (4.20-5.00); RDW 16.8 % (10.5-14.5); WBC 17.2 thou/uL (4.0-11.0)
[2021-07-27 07:03] LABS: ALBUMIN 2.8 g/dL (3.4-5.0); CALCIUM 8.7 mg/dL (8.5-10.1); CREATININE 0.5 mg/dL (0.6-1.0); POTASSIUM 4.1 mmol/L (3.5-5.1); TOTAL BILIRUBIN 0.7 mg/dL (0.2-1.0); TOTAL PROTEIN 5.8 g/dL (6.4-8.2)
--- NOTE | 2021-07-27 07:26 | EKG ---
[place] [address] [facility] [place] [address] ELECTROCARDIOGRAM REPORT Name: ISAK VO Room #: 363-P ADM IN M.R.#: [id number] Admission: 07/12/21 Attend Phys: Pablo Cherry MD Discharge: Date of : 73 Report #: [id number] [facility] Test Date: 2021-07-26 Test Time: 16:10:14 Pat Name: ISAK VO Department: Room: 363 P Gender: F Baggage Checker: FSCHWALBE : 1975 Requested By: Ky Paula Order Number: [id number] : Lj Kang Measurements Intervals [place] Rate: 122 P: 48 [place]: 108 QRS: 41 QRSD: 71 T: 148 QT: 354 QTc: 505 Interpretive Statements Sinus tachycardia Consider right atrial enlargement Borderline repol abnormality, diffuse leads Borderline prolonged QT interval Compared to ECG 07/23/2021 13:03:13 No significant changes Electronically Signed On 07-27-2021 7:25:59 CDT by Lj Kang [email or web address] <ELECTRONICALLY SIGNED> By: Lj Kang MD, [facility] 07/27/21 0725 09 09 Lj Kang MD, FAC /EPI
[2021-07-27 07:39] VITALS: BP 148/96
--- NOTE | 2021-07-27 07:40 | NUR ---
PT MAKING SLOW PROGRESS TOWARS GOALS. LUNGS CTA EXCEPT CRACKS LLL. NO OUT NOTED IN CHEST TUBE. CONTINUES TO HAVE BUBBLING IN WATER CHAMBER. NO REPORTS OF SOA. DID C/O PAIN IN HER RIBS ON THE LEFT SIDE. TYLENOL X1 WITH VERY LITTLE REPORTED RELIEF. NOTED TO BE TACHYCARDIC, 110-120'S EARLY IN THE EVENING PROGRESS TO THE LOW 130'S. PT ENCOURAGED TO REPORT INCREASING PAIN IN HER RIBS. PT STATING THAT SHE DIDN'T INITALLY WANT ANY FENTANYL BECAUSE SHE WAS SCARE SHE WOULD BE "KNOCKED OUT AND NOT BE ABLE TO WAKE UP." REASSURANCE GIVEN. FENTANYL DOSE GIVEN AND PT WAS ABLE TO VOICE RELIEF PRIOR TO FALLING ASLEEP. PT LATER AWOKE AND STATED "THAT REALLY HELPED." CONTINUE TO MONITOR.
--- NOTE | 2021-07-27 08:30 | NUR ---
Nutrition follow up: Pt noted with stable weight since last week. On CCHO diet with glucerna at meals. Intake avg 75% across all meals. Good intakes of supplement ntoed. Glu POC avg>250, on SSI, but remains on steroid. Wound noted to coccyx; friction vs pressure, pt resistent to turning as ordered. Nursing has educated on importance of repositioning r/t wounds. With good intakes and supplement in place, no further interventions indicated at this time. Continues low nutrition risk.
[2021-07-27 08:46] LABS: ABSOLUTE NEUTROPHILS 15.5 thou/uL (1.4-8.2); ANISOCYTOSIS 1+; METAMYELOCYTES 2 %
--- NOTE | 2021-07-27 10:14 | NUR ---
WOUND CARE F/U; THE COCCYX AND BUTTOCKS AREAS SHOW IMPROVEMENT TODAY. THE LOW AIR LOSS PUMP IS FUNCTIONING APPROPRIATLY. THERE IS NO NEED TO CHANGE THE WOUND POC AT THIS TIME. DISCUSSED WITH SANTANA
[2021-07-27 11:41] VITALS: BP 137/93
--- NOTE | 2021-07-27 13:57 | NUR ---
SW reviewed chart and spoke with nursing and attending physician. Pt has chest tube in place and remains on optiflow. [facility] is following for admission to inpt acute rehab when medically stable. Pt does not have LTAC benefits through her insurance policy. SW is following to assist as needed with discharge planning.
[2021-07-27 16:15] VITALS: BP 152/100
--- NOTE | 2021-07-27 18:10 | NUR ---
RN ASSUMED PT'S CARE AT 0700, PT IS IS A&OX4, PT IS ON OPTIFLOW O2 AT 50-55%, PT'S OS SAT STAY AT 94-99%, BUT PT HAS SOB WITH ACTIVITIES, PT'S VS ARE STABLE, RN HAS CALLED HOSPITAL DR AND SURGICAL DR ABOUT PT'S HR AND L SIDE CHEST TUBE SITE PAIN HAVE INCREASED , NEW ORDER RECEIVED, PT'S PAIN AND HR HAVE IMPROVED, PT IS RELAXING NOW. PT IS VERY WEAK AND SHE NEEDS HELP ADL, PT REFUSED TO CHANGE HER POSITION AT 3 TIMES TODY .
[2021-07-27 19:01] VITALS: BP 144/101
[2021-07-28] VITALS (11 sets, daily range): BP systolic 115–154; BP diastolic 17–101
--- NOTE | 2021-07-28 05:30 | NUR ---
PT ALERT AND ORIENTED X 4. PT IS ON OPTFLOW AT 30L 56% FIO2. PT C/O OF PAIN AT CHEST TUBE INSERTION SITE AND LEFT SHOULDER. NURSE ADDRESSED CONCERNS AND ADMINISTERED PAIN MEDICATION. NURSE EDUCATED PT ON IMPORTANCE OF TURNING/SWITCHING POSITIONS TO PREVENT OR WORSEN PRESSURE WOUND ON COCCYX. PT POORLY COOPERATIVE. PT STATED "IT IS NOT COMFORTABLE & I PREFER TO LAY ON MY BACK."PT REFUSED TO WEAR SCDS DESPITE HIGH DVT RISK, STATING "IT IS TOO HOT", NURSE ADJUSTED TEMPERATURE SETINGS IN PT'S ROOM. WILL CONTINUE TO MONITOR.
--- NOTE | 2021-07-28 13:21 | NUR ---
SW reviewed chart and spoke with nursing and attending physician. Pt has chest tube in place and remains on optiflow. No weekend discharge planned. 5[facility] is following for possible admission to inpt acute rehab, once chest tube has been removed and pt is down to about 10L of O2. SW met with pt at bedside. Updated provided. Pt is aware that she does need to work with therapy. SW explained that insurance will authorize the level of care that they feel pt is able to tolerate: inpt acute rehab v. SNF. Pt verbalized understanding. SW is following to assist as needed with discharge planning.
--- NOTE | 2021-07-28 15:05 | NUR ---
RED LINE ON RUE PICC IS HARD PUSH, DOES NOT DRAW BLOOD. IV TEAM PAGED.
[2021-07-28 22:20] LABS: HCO3 28.2 mmol/L (22.0-26.0); PCO2 45.2 mmHg (35.0-45.0); pH 7.413 (7.360-7.450); sO2 84.6 % (92.0-98.0)
[2021-07-28 22:22] LABS: PO2 48.7 mmHg (80.0-100.0)
[2021-07-29] VITALS (80 sets, daily range): BP systolic 85–137; BP diastolic 55–92
--- NOTE | 2021-07-29 00:07 | NUR ---
PT VERY ANXIOUS AND TACHYPNEIC AT START OF SHIFT, BREATHING IS VERY LABORED USING ACCESSORY MUSCLES, AND RETRACTING, AND ABDOMINAL BREATHING. CALL TO KATE QUISPE UP TO FLOOR TO ASSESS PT ORDERED A STAT CXR AND ABG STAT CXR SHOWED WORSENING RIGHT PNEUMOTHORAX AND STABLE LEFT PNEUMOTHORAX WITH A LEFT CHEST TUBE IN PLACE. KATE DIAZ CONTACTED AND HE ORDERED PT TRANSFERRED TO ICU. PT TAKEN TO ICU VIA BED REPORT GIVEN TO LORRAINE DILLON. DR. LEMUS AT BEDSIDE AND PLACED A CHEST TUBE TO RIGHT ANTERIOR CHEST. PT ON OPTIFLOW 30L/60% FIO2 SATS AT 88%. MAGAN PICC WITH 2 PORTS NOT FLUSHING ACTIVASE INSTILLED AND SAT FOR 40 MINUTES ASPIRATED 1 ML OUT OF EACH PORT AND FLUSHED WITH 30 CC'S OF SALINE EACH. BOTH HAVE BLOOD RETURN AND FLUSHING WITHOUT DIFFICULTY AT THIS TIME. TELEMETRY INTACT RATES AT ST IN THE 130'S TO 140'S. ABG SHOWED CL PO2 AND LORRAINE LOVE AWARE.
[2021-07-29 00:43] LABS: HEMATOCRIT 34.6 % (37.0-47.0); HEMOGLOBIN 11.7 gm/dL (12.0-15.0); MCH 30.8 pg (26.0-34.0); MCHC 33.7 g/dL (28.0-37.0); MCV 91.4 fL (80.0-100.0); RBC 3.79 mil/uL (4.20-5.00); RDW 16.8 % (10.5-14.5); WBC 15.6 thou/uL (4.0-11.0)
[2021-07-29 00:57] LABS: CALCIUM 8.7 mg/dL (8.5-10.1); CREATININE 0.6 mg/dL (0.6-1.0); POTASSIUM 4.5 mmol/L (3.5-5.1)
--- NOTE | 2021-07-29 01:00 | NUR ---
PT TRANSFERRED TO ICU FROM 3W ON 07/28/21 AT [address] LEMUS PLACED R.ANTERIOR CHEST TUBE AT BED SIDE. PRECEDEX STATRED AT 0.8 MCG/KG/HR. PT IS ON 45L 85% OPTIFLOW. PT REPORT GIVEN BY SANTANA GRAVES
--- NOTE | 2021-07-29 03:58 | NUR ---
0300-SPOKE TO PT'S , GAVE UPDATE ON PT SINCE ARRIVING TO ICU, INCLUDING PLACEMENT OF NEW R CHEST TUBE AND STARTING PRECEDEX GTT. PT CURRENTLY RESTING COMFORTABLY W/IMPROVED VS.
[2021-07-29 04:14] LABS: ALBUMIN 2.1 g/dL (3.4-5.0); CALCIUM 8.6 mg/dL (8.5-10.1); CREATININE 0.5 mg/dL (0.6-1.0); POTASSIUM 4.8 mmol/L (3.5-5.1); TOTAL BILIRUBIN 0.4 mg/dL (0.2-1.0); TOTAL PROTEIN 5.2 g/dL (6.4-8.2)
[2021-07-29 04:18] LABS: ABSOLUTE NEUTROPHILS 11.1 thou/uL (1.4-8.2); BASOPHILS 0.2 % (0.0-2.0); HEMOGLOBIN 10.6 gm/dL (12.0-15.0); LYMPHOCYTES 2.3 % (24.0-44.0); MCH 31.3 pg (26.0-34.0); MCHC 34.4 g/dL (28.0-37.0); MCV 91.2 fL (80.0-100.0); MONOCYTES 2.2 % (1.0-8.0); PLATELET COUNT 101 thou/uL (150-400); POLYS 95.3 % (36.0-66.0); RDW 16.6 % (10.5-14.5); WBC 11.7 thou/uL (4.0-11.0)
--- NOTE | 2021-07-29 10:54 | NUR ---
THIS RN RETRIEVED PT AIRPODS, 2 NAIL FILES, 1 PAIR OF NAIL CLIPPERS, 2 TUBES OF CHAPSTICK FROM PT OLD BST IN ROOM 363. PT TOOK AIRPODS, THIS RN ADVISED TO TAKE AIRPODS HOME FOR SAFETY. PT HAS WIRED EARBUDS CURRENTLY CONNECTED TO HER IPAD. PT VERBALIZED UNDERSTANDING.
[2021-07-30] VITALS (27 sets, daily range): BP systolic 81–139; BP diastolic 49–89
[2021-07-30 04:55] LABS: HEMATOCRIT 29.8 % (37.0-47.0); HEMOGLOBIN 10.1 gm/dL (12.0-15.0); MCHC 33.7 g/dL (28.0-37.0); MCV 91.9 fL (80.0-100.0); RBC 3.24 mil/uL (4.20-5.00); RDW 16.9 % (10.5-14.5); WBC 9.5 thou/uL (4.0-11.0)
[2021-07-30 05:15] LABS: CALCIUM 8.5 mg/dL (8.5-10.1); CREATININE 0.5 mg/dL (0.6-1.0); POTASSIUM 4.9 mmol/L (3.5-5.1)
--- NOTE | 2021-07-30 16:01 | NUR ---
Informed Dr. Olvera of hematuria this morning, was instructed to flush catheter and if blood does not clear to consult urology. Flushed catheter and hematuria persisted. Consult urology, Dr. Patricio gave orders to insert 20 fr catheter and stated that if that does not help, a three way would be needed. Called house calls nurse practitioner for a 20fr catheter.
[2021-07-30 17:53] LABS: URINE BILIRUBIN NEGATIVE (Negative); URINE BLOOD 3+ (Negative); URINE CLARITY CLOUDY; URINE COLOR RED; URINE GLUCOSE-RANDOM* 2+ (Negative); URINE KETONES NEGATIVE (Negative); URINE LEUKOCYTES NEGATIVE (Negative); URINE NITRITE NEGATIVE (Negative); URINE PROTEIN (DIPSTICK) 2+ (Negative); URINE SPECIFIC GRAVITY >= 1.030 (1.005-1.035)
[2021-07-30 17:56] LABS: CASTS None Seen /LPF (None Seen); SQUAMOUS None Seen /LPF (0-3); URINE WBC 1-5 Rare /HPF (NONE SEEN)
[2021-07-30 17:57] LABS: BACTERIA None Seen /HPF (None Seen); CRYSTALS None Seen /LPF (None Seen); URINE RBC >20 Many /HPF (NONE SEEN)
--- NOTE | 2021-07-30 19:57 | NUR ---
Patient is progressing towards goal. No issues with VS or chest tubes today. Patient has hematuria, urology consulted. Louise replaced with 20fr.
[2021-07-31] VITALS (24 sets, daily range): BP systolic 100–138; BP diastolic 48–88
--- NOTE | 2021-07-31 05:22 | NUR ---
PT WANTS A BATH LATER TODAY WHEN SHE IS MORE AWAKE.
--- NOTE | 2021-07-31 06:25 | NUR ---
PT SLEPT OFF AND ON DURING THE NIGHT, BUT WAS VERY ANXIOUS AT TIMES. PRECEDEX GTT TITRATED NEEDED FOR ANXIETY. SCHEDULED CLONAZEPAM GIVEN. PT OCCASSIONALLY C/O FEELING LIKE SHE WAS "BREATHING HEAVY". SPO2 >90% ON OPTIFLOW. SOA SEEMED TO BE RELATED TO INCREASED ANXIETY. PT C/O BILATERAL NON-CARDIAC CHEST PAIN, LEFT SIDE WORSE THAN RIGHT. PT STATED HER "LUNGS HURT", PARTICULARLY AROUND CHEST TUBE SITES. PRN PAIN MEDICATIONS GIVEN. SEE EMAR. BILATERAL CHEST TUBES INTACT AND PATENT, BUT WITH ONLY SMALL AMOUNT OF OUTPUT. ENCOURAGED PATIENT TO ALLOW REPOSITIONING TO PREVENT FURTHER SKIN BREAKDOWN, BUT PT OFTEN REFUSED. LEONG IN PLACE AND PATENT. HEMATURIA NOTED UPON INITIAL ASSESSMENT. IRRIGATED CATHETER. PAGED UROLOGIST OYSTER WORKER TO PROVIDE UPDATE ON HEMATURIA. NO CALL BACK RECEIVED. URINE STILL BLOOD-TINGED AFTER IRRIGATION, BUT NO CLOTS PRESENT DURING THE SHIFT. NOT PROGRESSING WELL TOWARD POC GOALS. WILL GIVE REPORT TO ONCOMING NURSE.
--- NOTE | 2021-07-31 07:13 | NUR ---
PATIENT TRANSFERRED TO ICU FOR NEW CHEST TUBE PLACEMENT. WILL NEED NEW ORDERS ONCE ABLE TO PARTICIPATE.
--- NOTE | 2021-07-31 07:54 | NUR ---
Pt TRANSFERRED TO ICU. WILL PLACE ON HOLD AND AWAIT NEW ORDERS TO RESUME WHEN APPROPRIATE
--- NOTE | 2021-07-31 08:50 | NUR ---
Chart review. transferred down to icu from 3w over the weekend. Bilat chest tubes. Precedex for her panic attack. Poor appetite. Will cont following as needed for dc needs.
--- NOTE | 2021-07-31 10:13 | NUR ---
WOUND CARE F/U; THE WOUND TO THE RIGHT BUTTOCK IS WORSENING. THE COCCYX WOUND IS STABLE. THE PATIENTS CONDITION IS WORSENING AND IS NOW IN THE ICU. RECCOMMENDATION; CONSULT DR RAMIREZ. ASNTANA PRESENT
--- NOTE | 2021-07-31 15:38 | HC ---
[facility] [place] [address] CONSULTATION Name: ISAK VO Room #: [facility]-P ADM IN M.R.#: [id number] Admission: 07/12/21 Attend Phys: Pablo Cherry MD Discharge: Date of : 73 Report #: [id number] THIS REPORT FOR: cc: Sybil Brown Ghaison F. DO Smithson, David G. MD ~ DATE OF SERVICE: 07/17/2021 HISTORY OF PRESENT ILLNESS: The patient is a 46-year-old white female who was originally admitted to [facility] with COVID-19 pneumonia on 05/25/2021. She has premorbid anxiety and obstructive sleep apnea, on CPAP. She was noted to have a left tension pneumothorax and underwent chest tube placement on 07/01/[address] Muhammad. Her course has been complicated by ARDS, respiratory failure and CTA with multiple small nonocclusive pulmonary emboli. She has severe generalized anxiety disorder, which has been a premorbid problem, further complicating things. She also has a critical illness myopathy, has been treated for sepsis, recent thrombocytopenia. We are seeing her in Rehabilitation Medicine consultation. PAST MEDICAL HISTORY: As noted above. Prior history includes anxiety, hysterectomy, gallbladder removed, hyperlipidemia and sleep apnea. HABITS: Tobacco, never smoked. MEDICATIONS: Please see the full medication listing. ALLERGIES: CODEINE AND OXYCODONE ARE LISTED. SOCIAL HISTORY: Lives in a house with her spouse. Using an adaptive device. She was premorbid community ambulator. She knows it is a [place]. It is about 9 steps and then she can stay on the upstairs floor. She indicates her could do FMLA for 3 months. She has other family members that are involved. REVIEW OF SYSTEMS: Did not offer any current complaints of chest pain, shortness of breath, or abdominal discomfort. Lying in her bed. She notes anxiety has been an ongoing significant problem. PHYSICAL EXAMINATION: GENERAL: She is a 46-year-old white female lying in bed, currently in no obvious distress. VITAL SIGNS: Temperature 37.2, pulse 72, respirations 20, blood pressure 148/95. She is on 40 liters per minute. CHEST: She has the chest tube in place. Cardiothoracic surgery is following. There was noted to have a persistent air leak and chest x-ray showed a very small left apical pneumothorax with a chest tube remaining in place. [facility] [address] [place] [address] CONSULTATION Name: ISAK VO Room #: 247-P ADM IN .R.#: [id number] Admission: 07/12/21 Attend Phys: Pablo Cherry MD Discharge: Date of : 73 Report #: [id number] NEUROLOGIC: She follows basic 1-step commands without difficulty. Functional range of motion of the upper and lower extremities. Strength is decreased throughout. I would grade her at probably a 3+/5. Tone appeared to be intact. DTRs trace to 1. She has been max assist with attempted bed mobility. In physical therapy and occupational therapy, she is noted to have decreased tolerance. With attempted getting up, sitting on the edge of the bed, she can only tolerate it for a short time. O2 sats will start decreasing. Anxiety is also an issue. ASSESSMENT: A 46-year-old female with the following problem list: 1. Critical illness myopathy. 2. Tension pneumothorax, status post left chest tube. She has chest tube air leak that is noted with Cardiothoracic Surgery assisting. 3. Acute hypoxic respiratory failure. 4. Recent COVID-19 pneumonitis, lower respiratory tract infection. 5. Acute respiratory distress syndrome. 6. Sepsis. 7. Pulmonary embolism. She was noted to have multiple small nonocclusive pulmonary embolisms. 8. Severe generalized anxiety disorder. She was on a Precedex drip previously. Psychiatry is involved. PLAN: She continues with a chest tube in place. She is on high-flow O2. She does not have the tolerance for an acute rehabilitation stay and desaturates quickly. She is not a candidate for an acute inpatient rehabilitation stay at this time and needs to be off the chest tube, decreased O2 needs with improved tolerance. We will continue to follow along with you. <ELECTRONICALLY SIGNED> By: Dorian Meneses MD 07/31/21 1538 [id number] Dorian Meneses MD /nt
[2021-07-31 16:05] LABS: HEMATOCRIT 33.9 % (37.0-47.0); HEMOGLOBIN 11.3 gm/dL (12.0-15.0); MCH 30.3 pg (26.0-34.0); MCHC 33.4 g/dL (28.0-37.0); MCV 90.8 fL (80.0-100.0); PLATELET COUNT 169 thou/uL (150-400); RBC 3.73 mil/uL (4.20-5.00); RDW 16.8 % (10.5-14.5); WBC 11.1 thou/uL (4.0-11.0)
[2021-07-31 16:23] LABS: ALBUMIN 1.8 g/dL (3.4-5.0); CALCIUM 8.6 mg/dL (8.5-10.1); CREATININE 0.5 mg/dL (0.6-1.0); POTASSIUM 4.7 mmol/L (3.5-5.1); TOTAL BILIRUBIN 0.5 mg/dL (0.2-1.0); TOTAL PROTEIN 5.8 g/dL (6.4-8.2)
[2021-07-31 18:03] LABS: ABSOLUTE NEUTROPHILS 9.9 thou/uL (1.4-8.2); ANISOCYTOSIS 1+; PLATELET ESTIMATE NORMAL
--- NOTE | 2021-07-31 18:45 | NUR ---
Patient not progressing towards plan of care as evidenced by her continued panic attacks which cause tachycardia, tachypnia. Reassurance provided, without success. Dr. Ardon was here for this evening episode, medication given per MD order. Chest xray was performed secondary to patient feeling as if her pneumo was worsening. This was ordered by Dr. Watts. With patients tachypnia and tachycardia, it was difficult to determine. Chest tubes remained as documented, bilateral equal chest expansion was noted, lung sounds were unchanged.
--- NOTE | 2021-07-31 19:38 | NUR ---
Dr. Watts here at this time, sepsis screening positive results relayed to him. No new orders at this time. Chest xray noted and relayed to physician. Dr. Ardon was here during patient anxiety attack. She ordered an extra dose of clonazepam. Patient was anxious about chest tube, expressing she couldn't breathe, tachypneic, tachycardic, o2 saturation was 95%. She is resting quietly and calmly at this time.
[2021-08-01] VITALS (23 sets, daily range): BP systolic 90–163; BP diastolic 53–91
--- NOTE | 2021-08-01 07:50 | NUR ---
NO SIGNIFICANT EVENTS DURING THE NIGHT. PT SLEPT MOST OF THE NIGHT. RESPIRATIONS EVEN AND UNLABORED. STABLE O2 SATS ON OPTIFLOW. PT WAS LESS ANXIOUS DURING THE NIGHT COMPARED TO PREVIOUS NIGHT. PRECEDEX GTT INFUSING BUT TITRATED DOWN SLIGHTLY PT'S ANXIETY WAS WELL-CONTROLLED DURING THE SHIFT. PAIN MEDICATION GIVEN ONCE DURING THE NIGHT. BILATERAL CHEST TUBES IN PLACE. REPOSITIONED TO PREVENT SKIN BREAKDOWN. HEEL PROTECTOR BOOTS PLACED ON PT TO PREVENT SKIN BREAKDOWN AND TO HELP WITH HER FOOT DROP. NO BM FOR A FEW DAYS. PRN MEDICATIONS GIVEN FOR CONSTIPATION. PT PROGRESSING VERY SLOWLY TOWARD POC GOALS. REPORT GIVEN TO ONCOMING NURSE.
[2021-08-02] VITALS (31 sets, daily range): BP systolic 104–159; BP diastolic 56–104
--- NOTE | 2021-08-02 10:35 | NUR ---
Nutrition followup: pt was transferred to ICU due to prior need for precedex and extreme anxiety. precedex now off. Admitted with left PTX, PNA, now Right PTX, has right and left chest tubes in place. Possible 4# weight decline in 3 weeks. Todays weight of 142# is error. Day prior was 154# which feel is more accurate. Pt has reported good appetite and prior to ICU transfer averaged 75%. PO intakes declined 07/29 but now improving again. Drinks Glucerna TID. RD obtained further food preferences to increase intakes at meals. On high flow 02 and nsg reports refusing some anxiety meds. No BM since 07/28, adding senna along with colace. Has friction vs pressure wound to coccyx and right buttock wound followed by wound care. RD continues to encourage adequate oral intakes especially protein for wound healing. Keep as low risk with interventions in place.
--- NOTE | 2021-08-02 19:13 | NUR ---
PT NOT PROGRESSING TOWARD GOALS EVIDENCED BY INCREASED ANXIETY, PAIN UNCONTROLLED, INCREASING OXYGEN DEMANDS, AND CONTINUES TO REQUIRE CHEST TUBE. PATIENT TACHYCARDIC AND TACHYPNEIC MOST OF SHIFT WITH C/O PAIN AND ANXIETY. AT BEDSIDE FOR PART OF SHIFT. PATIENT REFUSED TURNS, YELLED AND SCREAMED WHEN EDUCATED AND ENCOURAGED TO REDISTRIBUTE WEIGHT D/T PRESSURE INJURY AND COMPLAINING OF BACK AND CHEST PAIN. PATIENT WOULD ONLY ACCEPT MEDICATION FOR PAIN MANAGEMENT ALL OTHER ALTERNATIVES REFUSED. PATIENT GIVEN MEDS TO DECREASE TACHYCARDIA WITH GOOD RESULTS. PATIENT BECAME AGITATED AND UPSET WHEN PT/OT DISCUSSED AND STATED THAT "THEY PUSH TOO HARD" AND PATIENT NOT AMENABLE TO POSSIBLE TRANSFER OUT OF ICU STATING THE DOCTOR WANTS HER TO STAY. REFUSED MOST TREATMENTS. VITAL SIGNS RELAYED TO DOCTOR. LOPRESSOR ADDED TO MANAGE HEART RATE. PRN PAIN MED ADDED IN ADDITION TO PAIN MEDS ON DEC. PATIENT HAD STAT CHEST XRAY D/T INCREASED OXYGEN NEEDS. PER PULM, PATIENT HAD CT OF CHEST TODAY. BG ACHS MANAGED WITH HD SSI. "
[2021-08-03] VITALS (27 sets, daily range): BP systolic 108–155; BP diastolic 78–104
[2021-08-03 05:30] LABS: HEMATOCRIT 31.7 % (37.0-47.0); HEMOGLOBIN 10.3 gm/dL (12.0-15.0); MCH 29.8 pg (26.0-34.0); MCHC 32.5 g/dL (28.0-37.0); MCV 91.6 fL (80.0-100.0); RBC 3.46 mil/uL (4.20-5.00); RDW 16.7 % (10.5-14.5)
[2021-08-03 05:40] LABS: CALCIUM 9.1 mg/dL (8.5-10.1); CREATININE 0.4 mg/dL (0.6-1.0); POTASSIUM 4.3 mmol/L (3.5-5.1)
--- NOTE | 2021-08-03 10:28 | NUR ---
PT IS HAVING PAIN AND GENERALIZED ANXIETY ATTACKS. HR IS 125-130 AND HER OXYGEN DEMANDS ARE INCREASING. RT IS NOTIFIED. DR PATY IS NOTIFIED BUT HE NOTES THAT SHE IS HAVING ANXIETY; MOREOVER, DO NOT MEDICATE HER WITH PAIN MEDS TO CONTROL THE ANXIETY. THE CXR SHOWS A LEFT PNEUMO THAT HAS NOT IMPROVED, BUT THE INFILTRATION IS IMPROVING. THIS PT IS NOT MOTIVATED TO BECOME INDEPENDENT NOR TO HAVE EDUCATION CONCERNING BREATHING TECHNIQUES. THE PT. REFUSES EDUCATION FROM THIS RN REGARDING PAIN MEDS; SHE REFUSES TO BE TURNED. THIS PT REFUSES TO USE HER HANDS, MOVE HER LEGS, AND PARTICIPATE IN HER CARE.
[2021-08-03 13:45] LABS: URINE BILIRUBIN NEGATIVE (Negative); URINE BLOOD 3+ (Negative); URINE COLOR YELLOW; URINE GLUCOSE-RANDOM* NEGATIVE (Negative); URINE KETONES 1+ (Negative); URINE LEUKOCYTES-REFLEX NEGATIVE (Negative); URINE NITRITE-REFLEX POSITIVE (Negative); URINE PROTEIN (DIPSTICK) 2+ (Negative); URINE SPECIFIC GRAVITY >= 1.030 (1.005-1.035)
[2021-08-03 13:46] LABS: URINE CLARITY CLOUDY
[2021-08-03 14:09] LABS: BACTERIA-REFLEX >30 Many /HPF (None Seen); CASTS None Seen /LPF (None Seen); CRYSTALS None Seen /LPF (None Seen); SQUAMOUS 0-3 Few /LPF (0-3); URINE RBC >20 Many /HPF (NONE SEEN); URINE WBC-REFLEX 0-5 Rare /HPF (0-5)
[2021-08-04] VITALS (24 sets, daily range): BP systolic 126–156; BP diastolic 82–102
[2021-08-04 06:11] LABS: HEMATOCRIT 29.5 % (37.0-47.0); HEMOGLOBIN 9.5 gm/dL (12.0-15.0); MCH 29.6 pg (26.0-34.0); MCHC 32.2 g/dL (28.0-37.0); MCV 91.8 fL (80.0-100.0); RBC 3.21 mil/uL (4.20-5.00); RDW 16.7 % (10.5-14.5); WBC 15.6 thou/uL (4.0-11.0)
--- NOTE | 2021-08-04 06:21 | NUR ---
NO ACUTE EVENTS OVERNIGHT. WORKED WITH PT ON PAIN MANAGEMENT.
[2021-08-04 06:36] LABS: CALCIUM 8.6 mg/dL (8.5-10.1); CREATININE 0.4 mg/dL (0.6-1.0); POTASSIUM 3.8 mmol/L (3.5-5.1)
--- NOTE | 2021-08-04 09:15 | NUR ---
RT DECREASED THE FI02 TO 45% FROM 50% BUT THE PT IMMEDIATELY DESATTS TO 88%. SHE CONTINUES TO HAVE ANXIETY WHILE IGNORING EDUCATION CONCERNING POC. THE PT IS NONCOMPLIANT WITH ANY TITRATION OF HER OPTIFLOW; SHE STARTS TO BREATHE FASTER AND LABORIOUS WITH ANY CHANGE. ATTEMPTS TO EDUCATE ON BREATHING TECHNIQUE DOES NOT IMPROVE COMPLIANCE WITH THE POC. THIS PT. CONTINUES TO DISAGREE CONCERNING THE ANXIETY MEDS VERSES THE PAIN MEDS. MOREOVER; STATING, "I DO NOT HAVE SCHEDULED CLONAZEPAM." THS RN EDUCATES THAT CLONAZEPAM IS IN THE MAR, SCHEDULED TO HELP WITH ANXIETY. SHE IS NOT PROGRESSING TOWARD THE POC. THE OPTIFLOW IS AT 40L AND FI02 50% SHE IS SATTING 95% WITH RR 22.
--- NOTE | 2021-08-04 10:10 | HC ---
[facility] [place] [address] CONSULTATION Name: ISAK VO Room #: [facility] ADM IN M.R.#: [id number] Admission: 07/12/21 Attend Phys: Pablo Cherry MD Discharge: Date of : 73 Report #: [id number] THIS REPORT FOR: cc: Sybil Brown Ghaison F. DO Althoff, Jeffrey R. MD ~ DATE OF SERVICE: 07/31/2021 DATE OF CONSULTATION: 07/31/2021 CHIEF COMPLAINT: Pressure ulcerations to the sacral region and left buttock. HISTORY OF PRESENT ILLNESS: This is a 46-year-old female patient who has a history of COVID-19 pneumonitis. She has a persistent left pneumothorax with an air leak. She was admitted at [place] with worsening symptoms and is currently here in the Intensive Care Unit. PAST MEDICAL HISTORY: Positive for history of COVID-19 pneumonia in May, multiple small pulmonary emboli, generalized anxiety disorder, hypotension, history of sleep apnea and thrombocytopenia. SOCIAL HISTORY: Negative for alcohol or tobacco use. MEDICATIONS: Include rosuvastatin, and clonazepam. ALLERGIES: CODEINE AND OXYCODONE. FAMILY HISTORY: Noncontributory. REVIEW OF SYSTEMS: Not obtainable due to the patient's condition. PHYSICAL EXAMINATION: GENERAL: This is a chronically ill-appearing female patient who appears to be in mild discomfort. HEENT: Head is normocephalic. Nose is clear. LUNGS: Coarse. CARDIOVASCULAR: Irregular. ABDOMEN: Soft. EXTREMITIES: Examination of the gluteal sacral region demonstrates a stage 3 pressure ulceration to the sacrum and the left buttock, they are relatively superficial and healthy, clean and granulating. LABORATORY DATA: Include sodium 136, potassium 4.7, chloride 102, CO2 of 28, BUN 27, creatinine 0.5. White blood cell count 11.1 with a hemoglobin of 11.3, albumin is 1.8. [address] [address] CONSULTATION Name: ISAK VO Room #: [facility] ADM IN [facility].#: [id number] Admission: 07/12/21 Attend Phys: Pablo Cherry MD Discharge: Date of : 73 Report #: [id number] CLINICAL IMPRESSION: 1. Stage 3 pressure ulceration to the sacrococcygeal region and left buttock. 2. Persistent pneumothorax with air leak. 3. Multiple small nonocclusive pulmonary emboli. 4. Generalized anxiety disorder. 5. Thrombocytopenia. 6. Severe protein calorie malnutrition. RECOMMENDATIONS: At this point, I will recommend barrier cream and a bordered foam to the affected area daily and p.r.n. She will need low air loss mattress q. 2 hour turning and positioning. Recommend heel protectors while in bed. Continue other medical management, again aggressive nutritional support would maximize wound healing. I appreciate being asked to see her in consultation. <ELECTRONICALLY SIGNED> By: Dirk Dominguez MD 08/04/21 1010 [id number] Dirk Dominguez MD /nt
[2021-08-05] VITALS (24 sets, daily range): BP systolic 132–156; BP diastolic 84–107
[2021-08-05 03:49] LABS: HEMATOCRIT 28.1 % (37.0-47.0); HEMOGLOBIN 9.2 gm/dL (12.0-15.0); MCH 29.9 pg (26.0-34.0); MCHC 32.8 g/dL (28.0-37.0); MCV 91.2 fL (80.0-100.0); RBC 3.08 mil/uL (4.20-5.00); RDW 16.8 % (10.5-14.5); WBC 22.8 thou/uL (4.0-11.0)
[2021-08-05 04:12] LABS: ANION GAP < 0 mmol/L (7-16); BUN 17 mg/dL (7-18); CALCIUM 8.7 mg/dL (8.5-10.1); CHLORIDE 99 mmol/L (98-107); CO2 39 mmol/L (21-32); CREATININE 0.5 mg/dL (0.6-1.0); GLUCOSE 103 mg/dL (74-106); POTASSIUM 3.8 mmol/L (3.5-5.1); SODIUM 137 mmol/L (136-145)
--- NOTE | 2021-08-05 07:32 | NUR ---
Pt did better with her anxiety with only a few episodes without dropping her sats. Pt was afebrile, a&o x4, complained of pain around chest tube area, meds given with full relief and pt did not sleep during the shift. Reduced chest tube output (see chart) and adequate UOP. VSS within normal limit and pt still on optiflow with sats btwn 92-96%. Report given to day shift.
--- NOTE | 2021-08-05 17:47 | NUR ---
PATIENT NOT PROGRESSING TOWARDS THE PLAN OF CARE EVIDENCED BY INCREASED OXYGENATION NEEDS.
[2021-08-06] VITALS (20 sets, daily range): BP systolic 122–153; BP diastolic 83–104
[2021-08-06 05:27] LABS: HEMATOCRIT 26.8 % (37.0-47.0); HEMOGLOBIN 8.8 gm/dL (12.0-15.0); MCH 29.9 pg (26.0-34.0); MCHC 32.8 g/dL (28.0-37.0); RBC 2.94 mil/uL (4.20-5.00); RDW 16.6 % (10.5-14.5); WBC 21.3 thou/uL (4.0-11.0)
[2021-08-06 05:37] LABS: CALCIUM 8.5 mg/dL (8.5-10.1); CREATININE 0.3 mg/dL (0.6-1.0); POTASSIUM 3.5 mmol/L (3.5-5.1)
--- NOTE | 2021-08-06 08:02 | NUR ---
Pt was afebile, a&o x4, had non-cardiac chest pain and refused pain meds stating "pain meds will drop my oxygen, I don't want to ". Pt had two episodes of anxiety after her pain was worse, hr increased a little to a max of 120, rr 30-50s. RT came in and changed settings on pt's optiflow, pt finally agreed to take pain meds, vital sign came back to pt's baseline and pt was able to sleep for about 3 hr. Pt's pain was more on the left side (chest tube area) described as a pricking sensation with intermitted relief after repositioning. Report given to day shift.
[2021-08-06 14:37] LABS: BE(vivo) 6.6 mmol/L (-2 to +3); HCO3 30.5 mmol/L (22.0-26.0); PO2 90.6 mmHg (80.0-100.0); pH 7.489 (7.360-7.450); sO2 97.4 % (92.0-98.0)
--- NOTE | 2021-08-06 17:53 | NUR ---
PATIENT SLOWLY PROGRESSING TOWARDS THE PLAN OF CARE. IN THE AFTERNOON, PT BECAME TACHYPNEIC AND BECAME SEVERLY ANXIOUS. ABG'S DRAWN AND CXRAY OBTAINED AND REPORTED TO THE DIGITAL MARKETING PROJECT MANAGER. 1 MG ATIVAN WAS ORDERED AND GIVEN AND WAS EFFECTIVE IN CALMING THE PATIENT AND DECREASING HER RR.
[2021-08-07] VITALS (55 sets, daily range): BP systolic 104–184; BP diastolic 48–115
[2021-08-07 11:29] LABS: BE(vivo) 9.4 mmol/L (-2 to +3); HCO3 34.5 mmol/L (22.0-26.0); PCO2 50.6 mmHg (35.0-45.0); PO2 43.1 mmHg (80.0-100.0); pH 7.452 (7.360-7.450); sO2 80.4 % (92.0-98.0)
--- NOTE | 2021-08-07 11:30 | NUR ---
PT BECAME CONFUSED AFTER BREATHING TREATMENT. PT STARTED PULLING OFF HER OXYGEN STATING "THIS IS NOT OXYGEN." CONTINUED TO REDUCATE PT ABOUT KEEPING OXYGEN ON. PT CONTINUED TO TAKE IT OFF AND PUT HOB SUPINE. PT BP BECAME ELEVATED, O2 SAT IN THE 80s, HR ELEVATED, AND RR WAS 50-60s. PAGED RT. DR. LANDA ROUNDING AT THAT TIME. RECEIVED ORDERS. NOTIFIED DR. LANDA OF CRITICAL K+. PT NOT RESPONDING APPROPRIATELY TO QUESTIONS. CT ORDERED. WILL CONTINUE TO MONITOR.
[2021-08-07 12:16] LABS: HEMATOCRIT 26.2 % (37.0-47.0); HEMOGLOBIN 8.8 gm/dL (12.0-15.0); MCH 30.7 pg (26.0-34.0); MCHC 33.7 g/dL (28.0-37.0); MCV 91.1 fL (80.0-100.0); RBC 2.88 mil/uL (4.20-5.00); RDW 16.7 % (10.5-14.5); WBC 23.1 thou/uL (4.0-11.0)
[2021-08-07 12:33] LABS: CALCIUM 8.1 mg/dL (8.5-10.1); CREATININE 0.4 mg/dL (0.6-1.0)
[2021-08-07 12:39] LABS: POTASSIUM 2.9 mmol/L (3.5-5.1)
--- NOTE | 2021-08-07 14:05 | NUR ---
Chart review discussed during los and unit rounds. Bilat chest tubs. reported had some changes, getting stat cxr, less alert, poor appetite. Will cont. following as needed for dc needs.
--- NOTE | 2021-08-07 14:15 | NUR ---
SPOKE WITH REGARDING CHANGE IN PT CONDITION. VERBALIZED UNDERSTANDING AND STATED HE PLANS TO SEE PT TOMORROW.
--- NOTE | 2021-08-07 16:21 | NUR ---
REFERRAL FOR ACUTE INPATIENT REHAB WAS RECEIVED AND REHAB BOW REHAIRER AND LIAISON HAVE CONTINUED TO FOLLOW. PT CURRENTLY NOT ABLE TO TOLERATE THE REQUIRED LEVEL OF INTENSITY. WILL CONTINUE TO WATCH PROGRESS AND AWAIT FURTHER MEDICAL STABILIZATION.
--- NOTE | 2021-08-07 19:02 | NUR ---
Patient not progressing towards plan of care as evidenced by continued need for high levels of oxygen support, intermittent confusion with episodes of becoming minimally responsive. She has minimal pulmonary reserve and desaturates quickly. Plan of care is to continue to monitor oxygenation, vital signs, and assessments per ICU standards.
--- NOTE | 2021-08-07 19:04 | NUR ---
Dr. Olvera and Dr. Amador updated throughout the day of patient events, labs, venou ultrasound results. Tests performed as per physician order.
[2021-08-08] VITALS (27 sets, daily range): BP systolic 89–140; BP diastolic 52–123
[2021-08-08 04:43] LABS: CALCIUM 8.5 mg/dL (8.5-10.1); CREATININE 0.6 mg/dL (0.6-1.0); POTASSIUM 4.2 mmol/L (3.5-5.1)
--- NOTE | 2021-08-08 04:47 | NUR ---
ASSUMED CARE OF PATIENT AT 1900. PATIENT CONFUSED, RESTLESS, UNABLE TO BE REDIRECTED. WHEN ASKED ABOUT HER USE OF THE CALL LIGHT, SHE STATES THAT SHE PUSHES IT BECAUSE "SHE LIKES TO PLAY GAMES". PATIENT FREQUENTLY REMOVES O2 CANNULA, O2 SENSOR, DENIES PAIN OR SOA. DOES UNDERSTAND SHE HAS CHEST TUBES BECAUSE OF "COLLAPSED LUNGS". CALLED FOR UPDATE, DISCUSSED PATIENT BEHAVIOR WITH HIM. HE BELIEVES SHE IS SCARED TO PARTICIPATE IN CARE BECAUSE THE LAST TIME SHE DID, SHE ENDED UP WITH THE CHEST TUBE. PATIENT REMAINS IN BED, HAS NOT SLEPT AT ALL.
[2021-08-08 04:55] LABS: HEMOGLOBIN 8.6 gm/dL (12.0-15.0); MCH 30.3 pg (26.0-34.0); MCV 91.7 fL (80.0-100.0); RBC 2.84 mil/uL (4.20-5.00); RDW 16.5 % (10.5-14.5); WBC 27.4 thou/uL (4.0-11.0)
[2021-08-08 13:19] LABS: URINE BLOOD 3+ (Negative); URINE COLOR YELLOW; URINE GLUCOSE-RANDOM* 1+ (Negative); URINE KETONES TRACE (Negative); URINE LEUKOCYTES-REFLEX TRACE (Negative); URINE NITRITE-REFLEX NEGATIVE (Negative); URINE PROTEIN (DIPSTICK) 2+ (Negative); URINE SPECIFIC GRAVITY >= 1.030 (1.005-1.035)
[2021-08-08 13:31] LABS: ICTOTEST (BILI CONFIRMATORY) Negative (Negative); URINE BILIRUBIN NEGATIVE (Negative); URINE CLARITY HAZY
[2021-08-08 14:13] LABS: SQUAMOUS 0-3 Few /LPF (0-3)
[2021-08-08 14:14] LABS: BACTERIA-REFLEX >30 Many /HPF (None Seen); URINE RBC >20 Many /HPF (NONE SEEN); YEAST-REFLEX Present (None Seen)
--- NOTE | 2021-08-08 14:15 | NUR ---
Patient still appears to be anxious. Having visual halluications, at bedside and is aware of the situation. HR elevated in 120-130. Sent blood cultures/urine cultures, pending sputum. Dr. Olvera stated okay to restart precedex if needed. Spoke with YARED Khanna and Dr. Amador, plan is to try and stay off narcotics/sedation medication to see if that helps with the delirium. PICC line being replaced due to DVT in right arm.
--- NOTE | 2021-08-08 15:50 | NUR ---
THIS PATIENT WAS NOTED TO HAVE A OCCLUSIVE THROMBUS TO THE RIGHT ARM/CEPHALIC. A ORDER NOTED FOR LINE REPLACEMENT. A PICC WAS ATTEMPTED PER POLICY AND UNSUCESSFUL. THIS PATIENT VEINS ARE SMALLER THAN THE PICC CATHETER. PIV ALSO UNSUCCESSFUL. OK FOR CENTRAL ACCESS PER DR. LEMUS. THE SON WAS UPDATED AND OK WITH CENTRAL LINE ATTEMPT. A #6F TRIPLE LUMEN CENTRAL LINE WAS PLACED PER HOSPITAL POLICY WITH ASSISTANCE OF THE JUNIOR ACCOUNTANT TO REDIRECT THE PATIENT DUE TO NONCOMPLIANCE DURING PLACEMENT. THE 25CM LINE WAS ADVANCED TO 6CM EXTERNAL. A STAT CHEST XRAY WAS ORDERED FOR CONFIRMATION
--- NOTE | 2021-08-08 19:26 | NUR ---
Spoke with Dr. Olvera and Dr. Gonsales regarding patients CT scan, orders placed, modern languages professor nurse notified.
[2021-08-08 22:36] LABS: HEMATOCRIT 24.2 % (37.0-47.0); HEMOGLOBIN 7.9 gm/dL (12.0-15.0); MCH 30.2 pg (26.0-34.0); MCHC 32.5 g/dL (28.0-37.0); RBC 2.61 mil/uL (4.20-5.00); WBC 24.1 thou/uL (4.0-11.0)
[2021-08-08 22:38] LABS: CALCIUM 8.3 mg/dL (8.5-10.1); CREATININE 0.7 mg/dL (0.6-1.0); MAGNESIUM 2.1 mg/dL (1.8-2.4); POTASSIUM 4.3 mmol/L (3.5-5.1)
--- NOTE | 2021-08-08 23:00 | NUR ---
ASSUMED CARE OF PATIENT AT 1900. PATIENT REFUSING TREATMENT, UNCOOPERATIVE, BUT WAS ANSWERING MOST ORIENTATION QUESTIONS CORRECTLY. STATED REPEATEDLY SHE JUST WANTED TO SLEEP. AT 2210 PATIENT O2 SATS DROPPED TO THE 20'S, UNRESPONSIVE, AND CYANOTIC. PULSE REMAINED PRESENT. NICOLA HARRISON CALLED. PATIENT BAGGED UNTIL RESPONSIVE. NO INTUBATION NEEDED AT THIS TIME. PATIENT ON BIPAP, REMAINS RESPONSIVE AT THIS TIME. LABS, CXR, ABG'S DRAWN, RESULTS REPORTED TO KATE DIAZ. WILL CONTINUE TO MONITOR CLOSELY.
[2021-08-08 23:17] LABS: BE(vivo) 6.7 mmol/L (-2 to +3); HCO3 33.2 mmol/L (22.0-26.0); PCO2 59.4 mmHg (35.0-45.0); PO2 272.1 mmHg (80.0-100.0); pH 7.365 (7.360-7.450); sO2 99.6 % (92.0-98.0)
[2021-08-09] VITALS (92 sets, daily range): BP systolic 78–131; BP diastolic 20–88
[2021-08-09 04:51] LABS: CALCIUM 8.3 mg/dL (8.5-10.1); CREATININE 0.3 mg/dL (0.6-1.0); POTASSIUM 3.6 mmol/L (3.5-5.1)
[2021-08-09 05:08] LABS: HEMATOCRIT 23.2 % (37.0-47.0); HEMOGLOBIN 7.6 gm/dL (12.0-15.0); MCH 30.6 pg (26.0-34.0); MCHC 32.8 g/dL (28.0-37.0); MCV 93.2 fL (80.0-100.0); RBC 2.49 mil/uL (4.20-5.00); RDW 16.8 % (10.5-14.5); WBC 19.2 thou/uL (4.0-11.0)
--- NOTE | 2021-08-09 09:43 | 2DMMODE ---
[facility] [place] [address] 2 D/M-MODE ECHOCARDIOGRAM Name: ISAK VO Room #: 247-P ADM IN M.R.#: [id number] Admission: 07/12/21 Attend Phys: Pablo Cherry MD Discharge: Date of : 73 Report #: [id number] THIS REPORT FOR: cc: Sybil Brown Ghaison F. DO Santiago, Patrick MD [facility] ~ APPROVED REPORT Study performed: 08/09/2021 07:54:04 EXAM: Limited 2D, Doppler, and color-flow Echocardiogram Patient Location: ER Room #: 247 Status: routine BSA: 1.70 HR: 110 bpm BP: 99/58 mmHg Rhythm: Tachycardia Other Information Study Quality: Poor/pt on BiPAP Technically limited study due to limited windows.. Indications Limited follow up echo. Possible septic emboli. Hx: Pneumothorax, COVID-19, pulmonary embolism. (Complete echo done 07/24/21). Tricuspid Valve TR Peak Eduard.: 2.64 m/s RAP Estimate: 5.00 mmHg TR Peak Gr.: 28.00 mmHg PA Pressure: 33.00 mmHg Left Ventricle The left ventricle is normal size. There is normal LV segmental wall motion. Left ventricular systolic function is normal. LVEF is 60-65%. Right Ventricle The right ventricle is normal size. The right ventricular systolic function is normal. Atria The left atrium size is normal. The right atrium size is [facility] [address] [place] [address] 2 D/M-MODE ECHOCARDIOGRAM Name: ISAK VO Room #: 247-P ADM IN M.R.#: [id number] Admission: 07/12/21 Attend Phys: Pablo Cherry MD Discharge: Date of : 73 Report #: [id number]. Aortic Valve The aortic valve is not well visualized. No aortic regurgitation is noted. Mitral Valve The mitral valve is normal in structure. There is no mitral valve regurgitation noted. No evidence of mitral valve stenosis. Tricuspid Valve The tricuspid valve is normal in structure. Trace tricuspid regurgitation. Estimated PAP is 33mmHg. Pulmonic Valve Pulmonic valve is not well visualized. Great Vessels The aortic root is normal in size. IVC is normal in size and collapses >50% with inspiration. Pericardium There is no pericardial effusion. <Conclusion> Normal left ventricle size/wall thickness Ejection fraction 65% Normal right ventricular size/function Normal atrial size Normal aortic/mitral valve structure and function Trace tricuspid valve insufficiency Pulmonary systolic pressure estimated 33 mmHg No pericardial effusion Normal aortic root size <ELECTRONICALLY SIGNED> By: Lj Kang MD, [facility] 08/09/2142 0942 Lj Kang MD, FACC /INF
--- NOTE | 2021-08-09 19:31 | NUR ---
Patient had a great day. Mentation improved, patient is alert and oriented to self/place/time. Patient is unaware of the events that have occured in the past few days. CT of chest completed, left chest tube had 115 out for my shift. Hematuria has cleared after flushing green catheter. Encouraged patient all shift to increase fluid and food intake, patient is able to drink glucernas and had some lunch. All pain medication/clonazepam was held today due to delirium. Unable to collect sputum sample today. at bedside most of the day and aware of situation, all questions and concerns were addressed.
[2021-08-10] VITALS (93 sets, daily range): BP systolic 101–171; BP diastolic 59–100
[2021-08-10 05:29] LABS: HEMOGLOBIN 6.9 gm/dL (12.0-15.0); MCV 92.9 fL (80.0-100.0)
[2021-08-10 05:31] LABS: CALCIUM 8.4 mg/dL (8.5-10.1); CREATININE 0.2 mg/dL (0.6-1.0); HEMATOCRIT 20.4 % (37.0-47.0); MCH 31.3 pg (26.0-34.0); MCHC 33.7 g/dL (28.0-37.0); RBC 2.2 mil/uL (4.20-5.00); RDW 17.1 % (10.5-14.5); WBC 16.1 thou/uL (4.0-11.0)
[2021-08-10 06:01] LABS: POTASSIUM 2.7 mmol/L (3.5-5.1)
--- NOTE | 2021-08-10 07:28 | NUR ---
Pt is progressing slowly towards plan of care. Pt is alert and oriented to person, place and time. Pt refused care after her 2100 medications. Pt fio2 was reduced from 65% to 60% on 45L Optiflow.
--- NOTE | 2021-08-10 08:56 | NUR ---
Spoke with Dr. Taylor regarding patient hgb/platelets. Verbal order to hold lovenox, and give 1U PRBCs. Informed MD that patient is refusing care to include PO medications and morning x-ray. Will inform when he arrives and talk plan of care.
--- NOTE | 2021-08-10 09:08 | NUR ---
at bedside informed him that patient has been refusing care to include morning x-ray, stated "you can let them know to come back and ill get her to agree"
--- NOTE | 2021-08-10 10:05 | NUR ---
Paged Dr. Ardon due to patient refusing care. Requesting for evaulation to determine if patient is able to make decisions. Patient is refusing blood transfusion at this time and all PO medications. Patient answers appropiately to name, able to tell me where she is and at this time.
--- NOTE | 2021-08-10 11:28 | NUR ---
Nutrition status changed to high risk, dobhoff placement pending
[2021-08-10 17:16] LABS: HEMATOCRIT 29.8 % (37.0-47.0)
[2021-08-10 17:19] LABS: HEMOGLOBIN 9.8 gm/dL (12.0-15.0)
[2021-08-10 18:06] LABS: (1,3)-BETA-D-GLUCAN 53 pg/mL (<80)
--- NOTE | 2021-08-10 20:20 | NUR ---
Patient had flat affect today after evaluation with physicians. at bedside most of the day and directed/encouraged patient to participate in care. Clonazepam given once per request of patient and , all other oral medications were refused. Patient recieved 1 UPRBCs and potassium replacement. Dobhoff placed at 75cm. Vital AF tube feedings started. At 1745 patient began desating in the 30s on the monitor, upon assessment of patient the optiflow tube was disconnected. Patient placed immediately on bipap, oxygen saturation increased shortly after. Dr. Olvera notified of situation. Left chest tube to -30 suction 90 mL out. Right chest tube to waterseal 0mL out.
[2021-08-11] VITALS (76 sets, daily range): BP systolic 90–144; BP diastolic 54–87
[2021-08-11 06:38] LABS: HEMATOCRIT 28.4 % (37.0-47.0); HEMOGLOBIN 9.5 gm/dL (12.0-15.0); MCH 30.5 pg (26.0-34.0); MCHC 33.3 g/dL (28.0-37.0); MCV 91.6 fL (80.0-100.0); RBC 3.11 mil/uL (4.20-5.00); RDW 15.8 % (10.5-14.5); WBC 16.5 thou/uL (4.0-11.0)
[2021-08-11 06:47] LABS: CALCIUM 7.9 mg/dL (8.5-10.1); CREATININE 0.3 mg/dL (0.6-1.0); POTASSIUM 3.5 mmol/L (3.5-5.1)
--- NOTE | 2021-08-11 07:43 | NUR ---
Pt slowly progressing towards plan of care as evidenced continous need of BIPAP to saturate above 95%. Pt did not tolerate lowering of BIPAP setting from 60% to 50%.
[2021-08-11 12:06] LABS: BE(vivo) 7.9 mmol/L (-2 to +3); HCO3 36.7 mmol/L (22.0-26.0); PO2 61.8 mmHg (80.0-100.0); sO2 87.8 % (92.0-98.0)
[2021-08-11 12:08] LABS: PCO2 77.9 mmHg (35.0-45.0); pH 7.291 (7.360-7.450)
--- NOTE | 2021-08-11 15:26 | NUR ---
Discussed during los with the hospitalist and during unit rounds. BIPAP required today. No LTAC benefits through her insurance. chest tubes. No anticipated dc over the weekend, will cont following as needed for dc needs.
--- NOTE | 2021-08-11 19:00 | NUR ---
Patient rested throughout the day today. Physician updated during their rounds today. ABG's noted and reported. Sepsis screening reported to critical care physician. Patient not progressing towards plan of care as evidenced by continued requirement of bipap, decreasing in alertness. Plan of care is to continue to monitor patients hemodynamics and over all status. Per report, physician called patients spouse today for an update.
[2021-08-11 20:03] LABS: BE(vivo) 7.6 mmol/L (-2 to +3); HCO3 35.4 mmol/L (22.0-26.0); PO2 64.2 mmHg (80.0-100.0); sO2 89.9 % (92.0-98.0)
[2021-08-11 20:04] LABS: PCO2 70.4 mmHg (35.0-45.0)
[2021-08-11 20:06] LABS: pH 7.319 (7.360-7.450)
[2021-08-12] VITALS (56 sets, daily range): BP systolic 87–131; BP diastolic 55–79
--- NOTE | 2021-08-12 03:52 | NUR ---
ASSUMED CARE OF PT AT 1900. PT CALLED AT 0243. UPDATED ON PT STATUS AND ANSWERED QUESTIONS. PT BECAME MORE ALERT AND TACHYPNEIC DURING SHIFT. STARTED ON PRECEDEX.
[2021-08-12 06:30] LABS: HEMATOCRIT 26.5 % (37.0-47.0); HEMOGLOBIN 8.7 gm/dL (12.0-15.0); MCH 30.5 pg (26.0-34.0); MCHC 32.9 g/dL (28.0-37.0); MCV 92.8 fL (80.0-100.0); RBC 2.86 mil/uL (4.20-5.00); RDW 16.1 % (10.5-14.5)
[2021-08-12 06:37] LABS: CALCIUM 7.8 mg/dL (8.5-10.1); CREATININE 0.3 mg/dL (0.6-1.0)
[2021-08-12 11:33] LABS: BE(vivo) 8.7 mmol/L (-2 to +3); HCO3 38.4 mmol/L (22.0-26.0); PO2 77.2 mmHg (80.0-100.0); sO2 92.9 % (92.0-98.0)
[2021-08-12 11:34] LABS: PCO2 85.1 mmHg (35.0-45.0); pH 7.272 (7.360-7.450)
--- NOTE | 2021-08-12 11:54 | NUR ---
ASSUMED CARE OF PT AT 0700. PT LETHARGIC, TACHYPNIC AND TACHYCARDIC SINCE 0700. ABG OBTAINED DUE TO INCREASE TACHYCARDIA, LETHARGY, AND HYPOXIA. CRITICAL ABG CALLED TO DR LEMUS BY RT KIESHA AT 1135. DR LEMUS AGAIN CONTACTED BY RT AT 1139 AFTER CONVERSATION WITH SANTANA LOPEZ. DR TEMPLE AT BEDSIDE AT [address] LEMUS TO DISCUSS PLAN OF CARE AND POSSIBLE INTUBATION. AWAITING DR LY AT SI TIME.
--- NOTE | 2021-08-12 17:04 | NUR ---
PT SEPSIS SCREEN COMPLETED, PT MEETS SEPSIS CRITERIA, DR. TEMPLE NOTIFIED. WILL CONTINUE TO MONTIOR ID IS ON THE CASE.
[2021-08-13] VITALS (64 sets, daily range): BP systolic 61–127; BP diastolic 19–98
[2021-08-13 06:01] LABS: HEMATOCRIT 24.5 % (37.0-47.0); MCH 30.6 pg (26.0-34.0); MCHC 32.7 g/dL (28.0-37.0); MCV 93.7 fL (80.0-100.0); PLATELET COUNT 58 thou/uL (150-400); RBC 2.61 mil/uL (4.20-5.00); RDW 16.2 % (10.5-14.5); WBC 15.2 thou/uL (4.0-11.0)
[2021-08-13 06:37] LABS: CALCIUM 7.7 mg/dL (8.5-10.1); CREATININE 0.3 mg/dL (0.6-1.0); POTASSIUM 4.8 mmol/L (3.5-5.1)
[2021-08-13 06:53] LABS: ABSOLUTE NEUTROPHILS 14.3 thou/uL (1.4-8.2); METAMYELOCYTES 1 %; NUCLEATED RBCS 2 /100WBC
[2021-08-13 06:54] LABS: ANISOCYTOSIS SLIGHT; PLATELET ESTIMATE DECREASED
--- NOTE | 2021-08-13 10:12 | NUR ---
ASSUMED CARE OF PT AT 0700. PT TACHYCARDIC WITH HR 130s. METOPROLOL IVP GIVEN BY SANTANA CANO AT APPROXIMATELY [address]. DR LEMUS CALLED AT 1010 REGARDING TACHYCARDIA WITH INCREASED HYPOTENSION. ORDER FOR 1L NS GIVEN. WILL CONTINUE TO MONITOR.
[2021-08-13 21:34] LABS: BE(vivo) 6.8 mmol/L (-2 to +3); PCO2 138.6 mmHg (35.0-45.0); pH 7.067 (7.360-7.450); sO2 61.7 % (92.0-98.0)
[2021-08-13 21:35] LABS: PO2 47.4 mmHg (80.0-100.0)
[2021-08-13 21:53] LABS: APTT 27.6 Seconds (24.5-32.8); INR 1.1; PROTIME 11.9 Seconds (10.5-12.1)
[2021-08-13 21:57] LABS: DIRECT BILIRUBIN 0.1 mg/dL (<0.1-0.2); MAGNESIUM 1.8 mg/dL (1.8-2.4); PHOSPHORUS 2.7 mg/dL (2.6-4.7); TOTAL BILIRUBIN 0.2 mg/dL (0.2-1.0); TOTAL PROTEIN 4.4 g/dL (6.4-8.2)
--- NOTE | 2021-08-13 23:51 | NUR ---
MTN here with pt and when I came on shift at 1914. Pt plan of care was to go to comfort care and pt wished to be organ donor per previous conversation with prior to hospitalization when she . MTN instructions and protocols followed per orders Dr. Taylor. Pt taken to PACU at 2214, bipap and vasopressors dc'd at 2219; pt at 2229.
[2021-08-13 23:55] LABS: URINE BILIRUBIN NEGATIVE (Negative); URINE BLOOD 3+ (Negative); URINE CLARITY CLEAR; URINE COLOR YELLOW; URINE GLUCOSE-RANDOM* 2+ (Negative); URINE KETONES TRACE (Negative); URINE LEUKOCYTES TRACE (Negative); URINE NITRITE NEGATIVE (Negative); URINE PROTEIN (DIPSTICK) 2+ (Negative); URINE SPECIFIC GRAVITY >= 1.030 (1.005-1.035)
[2021-08-13 23:56] LABS: CASTS None Seen /LPF (None Seen); MUCUS 0-3 Light strn/LPF (None Seen); SQUAMOUS None Seen /LPF (0-3); URINE WBC 6-15 Few /HPF (NONE SEEN)
[2021-08-13 23:57] LABS: BACTERIA >30 Many /HPF (None Seen); CALCIUM OXALATE 0-3 Few /LPF (None Seen); TRANSITIONAL EPITHEL CELL 0-3 Few /LPF (None Seen); URINE RBC >20 Many /HPF (NONE SEEN); YEAST Present (None Seen)
[2021-08-14 02:58] LABS: CALCIUM 7.1 mg/dL (8.5-10.1); CREATININE 0.6 mg/dL (0.6-1.0); POTASSIUM 5.6 mmol/L (3.5-5.1)
--- NOTE | 2021-08-15 12:08 | NUR ---
BRIAN received call from pt's , Chirag, requesting assistance with completion of ppwk for his employer. BRIAN reviewed chart. Pt on 08/13/2021. Chirag sent via email ppwk needed to be completed by attending physician. BRIAN spoke with Chirag via phone to confirm info was received and will be sent to the attending physician for completion. Ppwk will be either scanned/emailed back to Chirag or left at the info desk for Chirag to knot picker cloth. BRIAN emailed to attending physician and hospitalist medical office secretary. BRIAN is following to assist as needed.
== END 2021-08-13 22:30 | DRG 314 ==
LOC: 3W 08:48 → ICU 08:48 → 3W 07-15 09:19 → ICU 07-15 11:14 → 3W 07-15 11:14 → ICU 07-28 22:52
PROVIDERS: Hospitalist; Internal Medicine; Internal Medicine Pulmonary Disease; Nurse Practitioner; Nurse Practitioner Family; Physician Assistant; Psychiatry & Neurology Psychiatry; Specialist; ADMIT Internal Medicine; ATTEND Internal Medicine
DX: T80.211A Bloodstream infection due to central venous catheter, initial encounter (principal); L89.153 Pressure ulcer of sacral region, stage 3; L89.323 Pressure ulcer of left buttock, stage 3; I26.99 Other pulmonary embolism without acute cor pulmonale; J80 Acute respiratory distress syndrome; J12.82 Pneumonia due to coronavirus disease 2019; E43 Unspecified severe protein-calorie malnutrition; A41.02 Sepsis due to Methicillin resistant Staphylococcus aureus; U07.1 COVID-19; G72.81 Critical illness myopathy; J93.83 Other pneumothorax; N39.0 Urinary tract infection, site not specified; B37.89 Other sites of candidiasis; G47.33 Obstructive sleep apnea (adult) (pediatric); F41.9 Anxiety disorder, unspecified; F32.9 Major depressive disorder, single episode, unspecified; F41.1 Generalized anxiety disorder; I95.9 Hypotension, unspecified; E78.5 Hyperlipidemia, unspecified; I95.1 Orthostatic hypotension; R73.9 Hyperglycemia, unspecified; D64.9 Anemia, unspecified; D69.6 Thrombocytopenia, unspecified; Z66 Do not resuscitate; R31.0 Gross hematuria; Z88.6 Allergy status to analgesic agent; Z90.710 Acquired absence of both cervix and uterus; Z90.49 Acquired absence of other specified parts of digestive tract; Z51.5 Encounter for palliative care; Z28.21 Immunization not carried out because of patient refusal
CPT/HCPCS: 10078; 10879; 50101; 50382; 50554; 57103; 58918; 85076